=== PATIENT | female | born 1950 | race Caucasian/White ===

== ENCOUNTER 2017-06-09 12:19 | Inpatient (IN) | payer MEDICAID, OTHER ==
[~2017-06-09] VITALS: Ht 152.4 cm; Wt 82.1 kg
[2017-06-09] VITALS (26 sets, daily range): BP systolic 129–180; BP diastolic 55–109
[~2017-06-09 12:19] MED LIST: ENOXAPARIN 80MG/0.8ML SYR SUBCUT SCH
[2017-06-09] MEDS ORDERED: WARF1TAB46 PO (12:27)
[2017-06-09] MEDS ORDERED: ASPI-1159 PO (12:27)
[2017-06-09] MEDS ORDERED: FUROSEMIDE 40MG/4ML VIAL IV STA (13:55)
[2017-06-09] MEDS ORDERED: NITROGLYCERIN OINT 1GM/INCH UDPKT TD STA (13:55)
[2017-06-09] MEDS ORDERED: ASPIRIN 81MG TABLET PO STA (13:55)
[2017-06-09] MEDS ORDERED: VANCOMYCIN 1 G PREMIX 200 ML IV SCH (14:00)
[2017-06-09] MEDS ORDERED: CEFTRIAXONE 1 G PREMIX 50 ML IV ONE (14:00)
[2017-06-09 14:21] LABS: BG CARBOXYHEMOGLOBIN 0.8 % (0.5-1.5); BG DEOXYHEMOGLOBIN 4.7 % (0.0-5.0); BG FRACTION INSPIRED OXYGEN 21; BG HCO3 ACT 28.7 mmol/L (22.0-26.0); BG METHEMOGLOBIN 0.2 % (0.0-1.5); BG OXYGEN SATURATION 95.3 % (92.0-98.5); BG OXYHEMOGLOBIN 94.3 % (94.0-97.0); BG PCO2 44.1 mmHg (35.0-45.0); BG PH 7.432 (7.350-7.450); BG SAMPLE SITE RIGHT RADIAL; BG TOTAL HEMOGLOBIN 10.3 g/dL (12.0-18.0); BG VENT MODE ROOM AIR
[2017-06-09 14:25] LABS: BASOPHILS % 0.3 % (0.0-2.0); EOSINOPHILS % 0.5 % (0.0-5.0); HEMATOCRIT. 29.3 % (36.0-48.0); HEMOGLOBIN. 8.9 g/dL (12.0-16.0); MEAN CORPUSCULAR HEMOGLOBIN 21.4 pg (28.0-32.0); MEAN CORPUSCULAR VOLUME 70.3 fL (81.0-99.0); MEAN PLATELET VOLUME 8.7 fl (7.4-10.4); MONOCYTES % 7.1 % (2.0-8.0); NEUTROPHILS % 84.1 % (40.0-76.0); PLATELET 275 x1000/uL (130-400); RED BLOOD CELL COUNT 4.17 mill/uL (4.2-5.4); RED CELL DISTRIBUTION WIDTH 19.5 % (11.6-14.6)
[2017-06-09 14:31] LABS: CHLORIDE 104 mEq/L (98-107)
[2017-06-09 14:33] LABS: CARBON DIOXIDE 30 mEq/L (21-32)
[2017-06-09 14:43] LABS: INR 1.4; PARTIAL THROMBOPLASTIN TIME 27.8 sec (23.4-31.0); PROTHROMBIN TIME 14.2 sec (9.4-11.6)
[2017-06-09 15:14] LABS: CLARITY URINE CLEAR (CLEAR); COLOR URINE YELLOW (YELLOW); GLUCOSE URINE NEGATIVE (NEGATIVE); KETONES URINE NEGATIVE (NEGATIVE); LEUKOCYTE ESTERASE URINE NEGATIVE (NEGATIVE); NITRITE URINE NEGATIVE (NEGATIVE); OCCULT BLOOD URINE NEGATIVE (NEGATIVE); PH URINE 5.5 (4.5-8.0); PROTEIN URINE 1+ (NEGATIVE)
[2017-06-09] MEDS ORDERED: ENOXAPARIN 80MG/0.8ML SYR SUBCUT ONE (15:45)
[2017-06-09] MEDS ORDERED: ASPIRIN 325MG EC TABLET PO ONE (16:30)
[2017-06-09] MEDS ORDERED: ONDANSETRON HCL 4MG/2ML VIAL IV PRN (16:45)
[2017-06-09] MEDS ORDERED: NITROGLYCERIN 0.4MG TABLET SL SL NR (16:45)
[2017-06-09] MEDS ORDERED: CLONIDINE 0.1MG TABLET PO PRN (16:45)
[2017-06-09] MEDS ORDERED: MORPHINE SULFATE 4 MG/ML CPJ (NOT FOR IM USE) IV PRN (16:45)
[2017-06-09] MEDS ORDERED: AMOX125S8 PO (18:58)
[2017-06-09] MEDS ORDERED: GABA300C PO (18:58)
[2017-06-09] MEDS ORDERED: METO25TA6 PO (18:58)
[2017-06-09] MEDS ORDERED: FURO-151 PO (18:58)
[2017-06-09] MEDS ORDERED: ATOR80TA PO (18:58)
[2017-06-09] MEDS ORDERED: LEVE1000 PO (18:58)
[2017-06-09] MEDS ORDERED: LISI40TA4 PO (18:58)
[2017-06-09] MEDS: ATORVASTATIN CALCIUM 40MG TABLET PO SCH (20:31)
[2017-06-09] MEDS: LISINOPRIL 10MG TABLET PO SCH (20:31)
[2017-06-09] MEDS: POTASSIUM CHLORIDE 20MEQ TABLET SR PO SCH (20:32)
[2017-06-09] MEDS: CARVEDILOL 3.125 MG TABLET PO SCH (20:32)
[2017-06-09 23:33] LABS: CREATINE KINASE MB FRACTION 3.8 ng/mL (0.5-3.6)
[2017-06-10] VITALS (87 sets, daily range): BP systolic 123–170; BP diastolic 60–106
[2017-06-10] MEDS ORDERED: ENOXAPARIN 80MG/0.8ML SYR SUBCUT SCH (03:00)
[2017-06-10 05:49] LABS: BASOPHILS % 0.7 % (0.0-2.0); EOSINOPHILS % 3.9 % (0.0-5.0); HEMATOCRIT. 27.2 % (36.0-48.0); HEMOGLOBIN. 8.4 g/dL (12.0-16.0); LYMPHOCYTES % 12.4 % (20.0-50.0); MEAN CORPUSCULAR HEMOGLOBIN 21.9 pg (28.0-32.0); MEAN CORPUSCULAR VOLUME 71.3 fL (81.0-99.0); MEAN PLATELET VOLUME 9.1 fl (7.4-10.4); MONOCYTES % 7.9 % (2.0-8.0); NEUTROPHILS % 75.1 % (40.0-76.0); PLATELET 237 x1000/uL (130-400); RED BLOOD CELL COUNT 3.82 mill/uL (4.2-5.4); RED CELL DISTRIBUTION WIDTH 19.2 % (11.6-14.6)
[2017-06-10 06:35] LABS: CARBON DIOXIDE 31 mEq/L (21-32); CHLORIDE 106 mEq/L (98-107); HDL CHOLESTEROL 34 mg/dL (40-59); LDL CHOLESTEROL 45 mg/dL (5-100); T4 FREE 1.42 ng/dL (0.76-1.46)
[2017-06-10 08:20] LABS: INR 1.7; PROTHROMBIN TIME 17.3 sec (9.4-11.6)
[2017-06-10] MEDS: POTASSIUM CHLORIDE 20MEQ TABLET SR PO SCH (09:21)
[2017-06-10] MEDS: FUROSEMIDE 40MG/4ML VIAL IV SCH (09:22)
[2017-06-10] MEDS: CARVEDILOL 3.125 MG TABLET PO SCH ×2 (09:22→20:28)
[2017-06-10] MEDS: LISINOPRIL 10MG TABLET PO SCH ×2 (09:22→20:28)
[2017-06-10] MEDS: ASPIRIN 81MG EC TABLET PO SCH (09:22)
[2017-06-10] MEDS ORDERED: POTASSIUM CHLORIDE 20MEQ/PACKET PO NR (10:00)
[2017-06-10] MEDS ORDERED: MAGNESIUM 1 G PREMIX 100 ML IV SCH (11:00)
[2017-06-10] MEDS: PANTOPRAZOLE SODIUM 40 MG/VIAL IV SCH (11:21)
[2017-06-10] MEDS ORDERED: MAGNESIUM 2 G PREMIX 50 ML IV SCH (13:00)
[2017-06-10 13:02] LABS: FOLIC ACID (FOLATE) SERUM 6.7 ng/mL (>5.38)
[2017-06-10] MEDS: ENOXAPARIN 100MG/ML SYR SUBCUT SCH (15:36)
[2017-06-10] MEDS: ATORVASTATIN CALCIUM 40MG TABLET PO SCH (20:28)
[2017-06-11] VITALS (42 sets, daily range): BP systolic 124–168; BP diastolic 53–109
[2017-06-11] MEDS: ENOXAPARIN 100MG/ML SYR SUBCUT SCH (03:36)
[2017-06-11 06:08] LABS: BASOPHILS % 0.5 % (0.0-2.0); EOSINOPHILS % 2.7 % (0.0-5.0); HEMATOCRIT. 27.2 % (36.0-48.0); HEMOGLOBIN. 8.4 g/dL (12.0-16.0); LYMPHOCYTES % 14.8 % (20.0-50.0); MEAN CORPUSCULAR HEMOGLOBIN 21.8 pg (28.0-32.0); MEAN CORPUSCULAR VOLUME 70.9 fL (81.0-99.0); MEAN PLATELET VOLUME 9.5 fl (7.4-10.4); MONOCYTES % 9.2 % (2.0-8.0); NEUTROPHILS % 72.8 % (40.0-76.0); PLATELET 264 x1000/uL (130-400); RED BLOOD CELL COUNT 3.84 mill/uL (4.2-5.4); RED CELL DISTRIBUTION WIDTH 19.5 % (11.6-14.6)
[2017-06-11 07:01] LABS: CARBON DIOXIDE 29 mEq/L (21-32); CHLORIDE 106 mEq/L (98-107)
[2017-06-11] MEDS: CARVEDILOL 3.125 MG TABLET PO SCH ×2 (08:43→20:03)
[2017-06-11] MEDS: ASPIRIN 81MG EC TABLET PO SCH (08:43)
[2017-06-11] MEDS: LISINOPRIL 10MG TABLET PO SCH ×2 (08:44→20:03)
[2017-06-11] MEDS: FUROSEMIDE 40MG/4ML VIAL IV SCH (08:44)
[2017-06-11] MEDS: PANTOPRAZOLE SODIUM 40 MG/VIAL IV SCH (08:44)
[2017-06-11] MEDS: POTASSIUM CHLORIDE 20MEQ TABLET SR PO SCH (08:45)
[2017-06-11 12:35] LABS: INR 1.6; PROTHROMBIN TIME 16.1 sec (9.4-11.6)
[2017-06-11] MEDS: SILVER SULFADIAZINE 1% CREAM 50GM TOP SCH (16:30)
[2017-06-11] MEDS: RIVAROXABAN 20 MG TABLET PO SCH (18:58)
[2017-06-11] MEDS: ATORVASTATIN CALCIUM 40MG TABLET PO SCH (20:02)
[2017-06-11] MEDS: MORPHINE SULFATE 4 MG/ML CPJ (NOT FOR IM USE) IV PRN (20:05)
[2017-06-12] VITALS (12 sets, daily range): BP systolic 114–165; BP diastolic 61–110
[2017-06-12] MEDS: ASPIRIN 81MG EC TABLET PO SCH (09:00)
[2017-06-12] MEDS: PANTOPRAZOLE SODIUM 40 MG/VIAL IV SCH (09:28)
[2017-06-12] MEDS: FUROSEMIDE 40MG/4ML VIAL IV SCH (09:28)
[2017-06-12] MEDS: POTASSIUM CHLORIDE 20MEQ TABLET SR PO SCH (09:29)
[2017-06-12] MEDS: CARVEDILOL 3.125 MG TABLET PO SCH ×2 (09:29→20:38)
[2017-06-12] MEDS: LISINOPRIL 10MG TABLET PO SCH ×2 (09:29→20:38)
[2017-06-12] MEDS: SILVER SULFADIAZINE 1% CREAM 50GM TOP SCH (09:31)
[2017-06-12 11:50] LABS: HEMATOCRIT 28.9 % (36.0-48.0); HEMOGLOBIN 8.7 g/dL (12.0-16.0); MEAN CORPUSCULAR HEMOGLOBIN 21.3 pg (28.0-32.0); PLATELET 270 x1000/uL (130-400); RED BLOOD CELL COUNT 4.06 mill/uL (4.2-5.4); RED CELL DISTRIBUTION WIDTH 19.9 % (11.6-14.6)
[2017-06-12 12:04] LABS: CARBON DIOXIDE 28 mEq/L (21-32); CHLORIDE 107 mEq/L (98-107)
[2017-06-12] MEDS ORDERED: IPRATROPIUM/ALBUTEROL 0.5-3(2.5)MG/3ML NEB HHN PRN (12:15)
[2017-06-12] MEDS: RIVAROXABAN 20 MG TABLET PO SCH (17:02)
[2017-06-12] MEDS: ATORVASTATIN CALCIUM 40MG TABLET PO SCH (20:36)
[2017-06-13] VITALS (11 sets, daily range): BP systolic 122–181; BP diastolic 52–99
[2017-06-13] MEDS: FUROSEMIDE 40MG/4ML VIAL IV SCH (09:44)
[2017-06-13] MEDS: POTASSIUM CHLORIDE 20MEQ TABLET SR PO SCH (09:44)
[2017-06-13] MEDS: ASPIRIN 81MG EC TABLET PO SCH (09:44)
[2017-06-13] MEDS: LISINOPRIL 10MG TABLET PO SCH ×2 (09:44→20:44)
[2017-06-13] MEDS: FAMOTIDINE 20MG TABLET PO SCH ×2 (09:44→20:42)
[2017-06-13] MEDS: CARVEDILOL 3.125 MG TABLET PO SCH ×2 (09:45→20:44)
[2017-06-13] MEDS: SILVER SULFADIAZINE 1% CREAM 50GM TOP SCH (09:50)
[2017-06-13] MEDS: RIVAROXABAN 20 MG TABLET PO SCH (17:18)
[2017-06-13] MEDS: HYDRALAZINE 20MG/ML VIAL IV PRN (19:49)
[2017-06-13] MEDS: ATORVASTATIN CALCIUM 40MG TABLET PO SCH (20:42)
[2017-06-13] MEDS: MORPHINE SULFATE 4 MG/ML CPJ (NOT FOR IM USE) IV PRN (21:27)
[2017-06-14] VITALS (13 sets, daily range): BP systolic 142–168; BP diastolic 46–98
[2017-06-14 06:46] LABS: BASOPHILS % 0.7 % (0.0-2.0); EOSINOPHILS % 2.5 % (0.0-5.0); HEMATOCRIT. 30.5 % (36.0-48.0); HEMOGLOBIN. 9.3 g/dL (12.0-16.0); LYMPHOCYTES % 19.5 % (20.0-50.0); MEAN CORPUSCULAR HEMOGLOBIN 21.4 pg (28.0-32.0); MEAN CORPUSCULAR VOLUME 70.5 fL (81.0-99.0); MEAN PLATELET VOLUME 9.3 fl (7.4-10.4); MONOCYTES % 9.6 % (2.0-8.0); NEUTROPHILS % 67.7 % (40.0-76.0); PLATELET 300 x1000/uL (130-400); RED BLOOD CELL COUNT 4.32 mill/uL (4.2-5.4); RED CELL DISTRIBUTION WIDTH 19.9 % (11.6-14.6)
[2017-06-14 07:16] LABS: CARBON DIOXIDE 26 mEq/L (21-32); CHLORIDE 107 mEq/L (98-107)
[2017-06-14] MEDS: POTASSIUM CHLORIDE 20MEQ TABLET SR PO SCH (08:47)
[2017-06-14] MEDS: CARVEDILOL 3.125 MG TABLET PO SCH ×2 (08:47→20:48)
[2017-06-14] MEDS: LISINOPRIL 10MG TABLET PO SCH ×2 (08:47→20:49)
[2017-06-14] MEDS: ASPIRIN 81MG EC TABLET PO SCH (08:47)
[2017-06-14] MEDS: FAMOTIDINE 20MG TABLET PO SCH ×2 (08:47→20:48)
[2017-06-14] MEDS: FUROSEMIDE 40MG/4ML VIAL IV SCH (08:47)
[2017-06-14] MEDS: SILVER SULFADIAZINE 1% CREAM 50GM TOP SCH (08:48)
[2017-06-14] MEDS: TRAMADOL 50MG TABLET PO PRN ×2 (11:29→20:49)
[2017-06-14] MEDS: RIVAROXABAN 20 MG TABLET PO SCH (16:12)
[2017-06-14] MEDS: ZINC SULFATE 220 MG ( 50 ) CAPSULE PO SCH (16:12)
[2017-06-14] MEDS: HYDRALAZINE 20MG/ML VIAL IV PRN (17:16)
[2017-06-14] MEDS: ASCORBIC ACID 250 MG TABLET PO SCH (20:48)
[2017-06-14] MEDS: ATORVASTATIN CALCIUM 40MG TABLET PO SCH (20:48)
[2017-06-15] VITALS (13 sets, daily range): BP systolic 132–159; BP diastolic 56–102
[2017-06-15] MEDS: SILVER SULFADIAZINE 1% CREAM 50GM TOP SCH (06:50)
[2017-06-15] MEDS ORDERED: MULTIVITAMINS,THER W-MINERALS TABLET PO SCH (09:00)
[2017-06-15] MEDS: POTASSIUM CHLORIDE 20MEQ TABLET SR PO SCH (09:11)
[2017-06-15] MEDS: CARVEDILOL 3.125 MG TABLET PO SCH ×2 (09:11→20:55)
[2017-06-15] MEDS: LISINOPRIL 10MG TABLET PO SCH ×2 (09:11→20:55)
[2017-06-15] MEDS: ZINC SULFATE 220 MG ( 50 ) CAPSULE PO SCH (09:11)
[2017-06-15] MEDS: ASPIRIN 81MG EC TABLET PO SCH (09:11)
[2017-06-15] MEDS: FAMOTIDINE 20MG TABLET PO SCH ×2 (09:11→20:55)
[2017-06-15] MEDS: FUROSEMIDE 40MG/4ML VIAL IV SCH (09:11)
[2017-06-15] MEDS: ASCORBIC ACID 250 MG TABLET PO SCH ×2 (09:11→20:55)
[2017-06-15 09:35] LABS: BASOPHILS % 0.5 % (0.0-2.0); EOSINOPHILS % 3.2 % (0.0-5.0); HEMATOCRIT. 31.9 % (36.0-48.0); HEMOGLOBIN. 9.8 g/dL (12.0-16.0); LYMPHOCYTES % 16.2 % (20.0-50.0); MEAN CORPUSCULAR HEMOGLOBIN 21.5 pg (28.0-32.0); MEAN CORPUSCULAR VOLUME 70.4 fL (81.0-99.0); MEAN PLATELET VOLUME 9.1 fl (7.4-10.4); NEUTROPHILS % 73.1 % (40.0-76.0); PLATELET 307 x1000/uL (130-400); RED BLOOD CELL COUNT 4.53 mill/uL (4.2-5.4); RED CELL DISTRIBUTION WIDTH 19.7 % (11.6-14.6)
[2017-06-15 09:51] LABS: CARBON DIOXIDE 27 mEq/L (21-32); CHLORIDE 105 mEq/L (98-107)
[2017-06-15] MEDS: RIVAROXABAN 20 MG TABLET PO SCH (17:35)
[2017-06-15] MEDS: ATORVASTATIN CALCIUM 40MG TABLET PO SCH (20:55)
[2017-06-16 00:39] VITALS: BP 150/65
[2017-07-05] MEDS ORDERED: WARF5TAB76 PO (13:41)
[2017-07-06] MEDS ORDERED: WARF5TAB76 PO (20:23)
== END 2017-06-16 00:40 | DRG 190 ==
LOC: EDBD 12:19 → ER 12:19 → EDBEDREQ 16:04 → OBSVTOIN 16:20 → CVICU 16:20 → EDBEDREQ 16:24 → EDBEDREQTM 16:24 → EDBEDREQSVC 16:24 → EDBEDREQ 16:29 → ENRESERV 16:30 → 5EST 06-11 18:37
PROVIDERS: ADMIT Hospitalist; ATTEND Hospitalist
DX: I21.4 Non-ST elevation (NSTEMI) myocardial infarction (principal); J96.00 Acute respiratory failure, unspecified whether with hypoxia or hypercapnia; E43 Unspecified severe protein-calorie malnutrition; I50.21 Acute systolic (congestive) heart failure; D68.59 Other primary thrombophilia; I42.9 Cardiomyopathy, unspecified; I27.2 Other secondary pulmonary hypertension; F03.90 Unspecified dementia, unspecified severity, without behavioral disturbance, psychotic disturbance, mood disturbance, and anxiety; E83.42 Hypomagnesemia; D64.9 Anemia, unspecified; E78.00 Pure hypercholesterolemia, unspecified; E78.5 Hyperlipidemia, unspecified; E87.5 Hyperkalemia; E87.6 Hypokalemia; G40.909 Epilepsy, unspecified, not intractable, without status epilepticus; I07.1 Rheumatic tricuspid insufficiency; I11.0 Hypertensive heart disease with heart failure; I48.2 Chronic atrial fibrillation; I69.351 Hemiplegia and hemiparesis following cerebral infarction affecting right dominant side; Z79.01 Long term (current) use of anticoagulants; Z79.82 Long term (current) use of aspirin; Z85.3 Personal history of malignant neoplasm of breast; Z79.899 Other long term (current) drug therapy; Z68.35 Body mass index [BMI] 35.0-35.9, adult
CPT/HCPCS: 36415; 36600; 51702; 70450; 70551; 71010; 78580; 80048; 80053; 80061; 81001; 82375; 82550; 82553; 82607; 82746; 82805; 83036; 83605; 83735; 83880; 84439; 84443; 84481; 84484; 85025; 85027; 85610; 85730; 87040; 87086; 92610; 93005; 93306; 93880; 93970; 96365; 96367; 96372; 96375; 97162; 99291; C9113; J0360; J0696; J1650; J1940; J2270; J3370; J3475; J7040; J7050; A4315

== ENCOUNTER 2017-07-01 13:36 | Inpatient (IN) | payer MEDICAID, OTHER ==
[~2017-07-01] VITALS: Ht 149.9 cm; Wt 78.5 kg
[~2017-07-01 13:36] MED LIST changes: +ASPI-1159 PO; -ENOXAPARIN 80MG/0.8ML SYR SUBCUT SCH; +FURO-151 PO; +GABA300C PO; +IOHEXOL-350 100 ML BOTTLE ONE; +LEVE1000 PO; +SODIUM CHLORIDE 0.9% 10ML VIAL ONE
[2017-07-01] MEDS ORDERED: SODIUM CHLORIDE 0.9% 1,000 ML IV ONE (14:03)
[2017-07-01 14:38] LABS: BG BASE EXCESS -2.5 mmol/L (-2.0-2.0); BG DEOXYHEMOGLOBIN 6.1 % (0.0-5.0); BG FRACTION INSPIRED OXYGEN 21; BG HCO3 ACT 22.5 mmol/L (22.0-26.0); BG METHEMOGLOBIN 0.3 % (0.0-1.5); BG OXYGEN SATURATION 93.8 % (92.0-98.5); BG OXYHEMOGLOBIN 92.6 % (94.0-97.0); BG PCO2 39.4 mmHg (35.0-45.0); BG PH 7.374 (7.350-7.450); BG SAMPLE SITE RIGHT BRACHIAL; BG TOTAL HEMOGLOBIN 12.7 g/dL (12.0-18.0); BG VENT MODE ROOM AIR
[2017-07-01 14:39] LABS: BASOPHILS % 0.3 % (0.0-2.0); EOSINOPHILS % 2.7 % (0.0-5.0); HEMATOCRIT. 37.7 % (36.0-48.0); HEMOGLOBIN. 11.5 g/dL (12.0-16.0); LYMPHOCYTES % 12.7 % (20.0-50.0); MEAN CORPUSCULAR HEMOGLOBIN 21.9 pg (28.0-32.0); MEAN CORPUSCULAR VOLUME 71.8 fL (81.0-99.0); MEAN PLATELET VOLUME 9.9 fl (7.4-10.4); MONOCYTES % 8.1 % (2.0-8.0); NEUTROPHILS % 76.2 % (40.0-76.0); PLATELET 244 x1000/uL (130-400); RED BLOOD CELL COUNT 5.24 mill/uL (4.2-5.4); RED CELL DISTRIBUTION WIDTH 21.8 % (11.6-14.6)
[2017-07-01 14:45] LABS: INR 1.2
[2017-07-01 14:52] LABS: AMMONIA 20 uMol/L (<32)
[2017-07-01 15:01] LABS: CARBON DIOXIDE 26 mEq/L (21-32); CHLORIDE 107 mEq/L (98-107)
[2017-07-01 15:02] LABS: TROPONIN I 0.71 ng/mL (0.00-0.04)
[2017-07-01] MEDS ORDERED: HEPARIN 5000 UNITS/ML VIAL IV ONE (19:30)
[2017-07-01] MEDS ORDERED: ASPIRIN 325MG EC TABLET PO ONE (19:30)
[2017-07-01] MEDS ORDERED: HEPARIN 25,000 UNITS PREMIX 500 ML IV SCH ×3 (19:30→22:00)
[2017-07-01] MEDS ORDERED: HEPARIN BOLUS PRN aPTT <36 IV (22:00)
[2017-07-01] MEDS ORDERED: HEPARIN BOLUS PRN aPTT 37-44 IV (22:00)
[2017-07-01] MEDS ORDERED: NA PHOS,M-B/NA PHOS,DI-BA ENEMA 118ML PR PRN (22:45)
[2017-07-01] MEDS ORDERED: DOCUSATE SODIUM 100MG CAPSULE PO PRN (22:45)
[2017-07-01] MEDS ORDERED: ACETAMINOPHEN 650MG/20.3ML UDC GT PRN (22:45)
[2017-07-01] MEDS ORDERED: VANCOMYCIN 1 G PREMIX 200 ML IV SCH (22:45)
[2017-07-01] MEDS ORDERED: ACETAMINOPHEN 650MG SUPP PR PRN (22:45)
[2017-07-01] MEDS ORDERED: HEPARIN 25,000 UNITS PREMIX 500 ML IV PRN (22:45)
[2017-07-01] MEDS ORDERED: CLONIDINE 0.1MG TABLET PO PRN (22:45)
[2017-07-01] MEDS ORDERED: DIPHENHYDRAMINE 50MG/ML VIAL IV PRN (22:45)
[2017-07-01] MEDS ORDERED: GUAIFENESIN 200MG/10ML SUGAR FREE UDC PO PRN (22:45)
[2017-07-01] MEDS ORDERED: ONDANSETRON HCL 4MG/2ML VIAL IV PRN (22:45)
[2017-07-01] MEDS ORDERED: IPRATROPIUM/ALBUTEROL 0.5-3(2.5)MG/3ML NEB INH PRN (22:45)
[2017-07-01] MEDS ORDERED: MAGNESIUM/ALUMINUM HYDROXIDE/SIMETHICONE 30ML UDC PO PRN (22:45)
[2017-07-01 23:20] VITALS: BP 156/79
[2017-07-01 23:26] VITALS: BP 186/100
[2017-07-01 23:30] VITALS: BP 180/104
[2017-07-01 23:45] VITALS: BP 157/62
[2017-07-02] VITALS (115 sets, daily range): BP systolic 90–189; BP diastolic 41–125
[2017-07-02] MEDS ORDERED: VANCOMYCIN 1 G PREMIX 200 ML IV SCH (02:00)
[2017-07-02] MEDS: SODIUM CHLORIDE 0.9% INJ 3ML FLUSH IVF SCH ×3 (06:05→22:35)
[2017-07-02 06:16] LABS: BASOPHILS % 0.5 % (0.0-2.0); EOSINOPHILS % 3.1 % (0.0-5.0); HEMOGLOBIN. 10.7 g/dL (12.0-16.0); MEAN CORPUSCULAR HEMOGLOBIN 21.8 pg (28.0-32.0); MEAN CORPUSCULAR VOLUME 71.3 fL (81.0-99.0); MEAN PLATELET VOLUME 10.7 fl (7.4-10.4); MONOCYTES % 8.8 % (2.0-8.0); NEUTROPHILS % 62.6 % (40.0-76.0); PLATELET 219 x1000/uL (130-400); RED BLOOD CELL COUNT 4.91 mill/uL (4.2-5.4); RED CELL DISTRIBUTION WIDTH 22.3 % (11.6-14.6)
[2017-07-02 06:43] LABS: CARBON DIOXIDE 27 mEq/L (21-32); CHLORIDE 104 mEq/L (98-107); CREATINE KINASE 37 IU/L (26-192); HDL CHOLESTEROL 51 mg/dL (40-59); LDL CHOLESTEROL 56 mg/dL (5-100)
[2017-07-02 07:20] LABS: TROPONIN I 0.66 ng/mL (0.00-0.04)
[2017-07-02 08:00] LABS: PLATELET ESTIMATE NORMAL
[2017-07-02] MEDS: HYDROCODONE/ACETAMINOPHEN 5/325MG TABLET PO PRN (08:25)
[2017-07-02] MEDS ORDERED: POTASSIUM CHLORIDE INJ 40 MEQ in DEXT 5% WATER 250 ML IV NR (11:30)
[2017-07-02] MEDS ORDERED: FUROSEMIDE 40MG TABLET PO PRN (11:45)
[2017-07-02] MEDS: GABAPENTIN 300MG CAPSULE PO SCH ×2 (12:35→16:52)
[2017-07-02] MEDS ORDERED: SODIUM CHLORIDE 0.9% 10ML VIAL ONE (14:05)
[2017-07-02] MEDS ORDERED: IOHEXOL-350 100 ML BOTTLE ONE (14:05)
[2017-07-02] MEDS ORDERED: POTASSIUM CHLORIDE 20MEQ/PACKET PO NR (14:45)
[2017-07-02 16:20] LABS: D-DIMER 0.83 mg/L FEU (<0.50)
[2017-07-02 16:37] LABS: TROPONIN I 0.66 ng/mL (0.00-0.04)
[2017-07-02 18:06] LABS: PARTIAL THROMBOPLASTIN TIME 123.2 sec (23.4-31.0)
[2017-07-02] MEDS: VANCOMYCIN 750 MG PREMIX 150 ML IV SCH (22:01)
[2017-07-03] VITALS (47 sets, daily range): BP systolic 90–167; BP diastolic 41–107
[2017-07-03] MEDS: SODIUM CHLORIDE 0.9% INJ 3ML FLUSH IVF SCH ×3 (05:09→22:00)
[2017-07-03] MEDS: GABAPENTIN 300MG CAPSULE PO SCH ×3 (07:47→17:00)
[2017-07-03] MEDS ORDERED: ALTEPLASE 2MG/VIAL ITC ONE (11:15)
[2017-07-03] MEDS ORDERED: ALTEPLASE 8 MG in SODIUM CHLORIDE 0.9% 100 ML IV NR (11:16)
[2017-07-03] MEDS ORDERED: LIDOCAINE HCL 1% 20ML VIAL (Pyxis) INJ ONE (11:21)
[2017-07-03] MEDS ORDERED: IODIXANOL 320MG/ML 100 ML BOTTLE IV ONE (11:21)
[2017-07-03] MEDS ORDERED: MIDAZOLAM HCL 2 MG/2 ML VIAL ONE (12:00)
[2017-07-03] MEDS ORDERED: FENTANYL CITRATE/PF 50MCG/ML 2ML VIAL ONE (12:00)
[2017-07-03] MEDS ORDERED: IOVERSOL 240MG/ML 100ML BOTTLE IV ONE (12:36)
[2017-07-03] MEDS ORDERED: HEPARIN SODIUM 1,000 UNIT/1ML VIAL IV ONE (13:31)
[2017-07-03] MEDS: VANCOMYCIN 750 MG PREMIX 150 ML IV SCH (14:06)
[2017-07-03 17:54] LABS: BASOPHILS % 0.3 % (0.0-2.0); EOSINOPHILS % 4.7 % (0.0-5.0); HEMATOCRIT. 33.3 % (36.0-48.0); HEMOGLOBIN. 10.2 g/dL (12.0-16.0); LYMPHOCYTES % 17.3 % (20.0-50.0); MEAN CORPUSCULAR HEMOGLOBIN 21.8 pg (28.0-32.0); MEAN CORPUSCULAR VOLUME 71.5 fL (81.0-99.0); MEAN PLATELET VOLUME 9.3 fl (7.4-10.4); MONOCYTES % 7.8 % (2.0-8.0); NEUTROPHILS % 69.9 % (40.0-76.0); PLATELET 186 x1000/uL (130-400); RED BLOOD CELL COUNT 4.66 mill/uL (4.2-5.4)
[2017-07-03 17:58] LABS: CARBON DIOXIDE 26 mEq/L (21-32); CHLORIDE 108 mEq/L (98-107)
[2017-07-03] MEDS ORDERED: RIVAROXABAN 20 MG TABLET PO SCH (20:00)
[2017-07-03] MEDS: HYDROCODONE/ACETAMINOPHEN 5/325MG TABLET PO PRN (20:54)
[2017-07-04] VITALS (55 sets, daily range): BP systolic 106–188; BP diastolic 39–106
[2017-07-04 05:39] LABS: BASOPHILS % 0.4 % (0.0-2.0); EOSINOPHILS % 4.6 % (0.0-5.0); HEMOGLOBIN. 10.4 g/dL (12.0-16.0); LYMPHOCYTES % 20.5 % (20.0-50.0); MEAN CORPUSCULAR VOLUME 72.2 fL (81.0-99.0); MEAN PLATELET VOLUME 10.2 fl (7.4-10.4); MONOCYTES % 10.4 % (2.0-8.0); NEUTROPHILS % 64.1 % (40.0-76.0); PLATELET 180 x1000/uL (130-400); RED BLOOD CELL COUNT 4.71 mill/uL (4.2-5.4); RED CELL DISTRIBUTION WIDTH 22.8 % (11.6-14.6)
[2017-07-04] MEDS: SODIUM CHLORIDE 0.9% INJ 3ML FLUSH IVF SCH ×3 (05:44→22:34)
[2017-07-04 06:01] LABS: CARBON DIOXIDE 26 mEq/L (21-32); CHLORIDE 107 mEq/L (98-107)
[2017-07-04] MEDS: GABAPENTIN 300MG CAPSULE PO SCH ×3 (09:26→17:30)
[2017-07-04] MEDS: VANCOMYCIN 750 MG PREMIX 150 ML IV SCH (09:27)
[2017-07-04] MEDS: HYDROCODONE/ACETAMINOPHEN 5/325MG TABLET PO PRN ×2 (09:43→20:55)
[2017-07-04] MEDS: WARFARIN SODIUM 5MG TABLET PO SCH (17:35)
[2017-07-05] VITALS (31 sets, daily range): BP systolic 102–174; BP diastolic 46–102
[2017-07-05] MEDS: VANCOMYCIN 750 MG PREMIX 150 ML IV SCH ×2 (01:14→21:15)
[2017-07-05] MEDS: SODIUM CHLORIDE 0.9% INJ 3ML FLUSH IVF SCH ×3 (05:03→21:15)
[2017-07-05] MEDS: HYDROCODONE/ACETAMINOPHEN 5/325MG TABLET PO PRN ×2 (05:03→18:22)
[2017-07-05 06:54] LABS: INR 1.1
[2017-07-05] MEDS: GABAPENTIN 300MG CAPSULE PO SCH ×3 (09:34→18:18)
[2017-07-05 10:56] LABS: HEMATOCRIT. 32.1 % (36.0-48.0); HEMOGLOBIN. 9.8 g/dL (12.0-16.0); MEAN CORPUSCULAR HEMOGLOBIN 22.1 pg (28.0-32.0); MEAN CORPUSCULAR VOLUME 72.3 fL (81.0-99.0); MEAN PLATELET VOLUME 11.2 fl (7.4-10.4); PLATELET 165 x1000/uL (130-400); RED BLOOD CELL COUNT 4.44 mill/uL (4.2-5.4); RED CELL DISTRIBUTION WIDTH 23.3 % (11.6-14.6)
[2017-07-05 11:07] LABS: CARBON DIOXIDE 24 mEq/L (21-32); CHLORIDE 106 mEq/L (98-107)
[2017-07-05 12:21] LABS: PLATELET ESTIMATE NORMAL
[2017-07-05] MEDS ORDERED: WARF5TAB76 PO (13:41)
[2017-07-05] MEDS ORDERED: REGADENOSON 0.4 MG/5 ML IV NR (14:30)
[2017-07-05] MEDS ORDERED: WARFARIN SODIUM 5MG TABLET PO NR (18:00)
[2017-07-05] MEDS: WARFARIN SODIUM 5MG TABLET PO SCH (18:17)
[2017-07-06] VITALS: BP 131/57
[2017-07-06 04:00] VITALS: BP 127/67
[2017-07-06 06:37] LABS: INR 1.2; PROTHROMBIN TIME 12.2 sec (9.4-11.6)
[2017-07-06 08:00] VITALS: BP 177/81
[2017-07-06] MEDS: GABAPENTIN 300MG CAPSULE PO SCH ×3 (08:43→17:34)
[2017-07-06] MEDS ORDERED: WARFARIN SODIUM 5MG TABLET PO ONE (09:00)
[2017-07-06] MEDS ORDERED: REGADENOSON 0.4 MG/5 ML IV ONE (09:27)
[2017-07-06 12:00] VITALS: BP 121/62
[2017-07-06] MEDS: VANCOMYCIN 1 G PREMIX 200 ML IV SCH (15:00)
[2017-07-06 16:00] VITALS: BP 136/78
[2017-07-06] MEDS: WARFARIN SODIUM 5MG TABLET PO SCH (18:00)
[2017-07-06 20:00] VITALS: BP 96/45
[2017-07-06] MEDS ORDERED: WARF5TAB76 PO (20:23)
[2017-07-06 22:07] LABS: INR 1.4; PROTHROMBIN TIME 14.2 sec (9.4-11.6)
[2017-07-07] VITALS: BP 112/49
[2017-07-07 04:00] VITALS: BP 135/57
[2017-07-07] MEDS: ACETAMINOPHEN 325MG TABLET PO PRN ×2 (05:29→17:42)
[2017-07-07] MEDS: SODIUM CHLORIDE 0.9% INJ 3ML FLUSH IVF SCH ×2 (05:37→15:15)
[2017-07-07 08:00] VITALS: BP 137/62
[2017-07-07] MEDS: VANCOMYCIN 1 G PREMIX 200 ML IV SCH (08:42)
[2017-07-07] MEDS: GABAPENTIN 300MG CAPSULE PO SCH ×3 (08:42→16:24)
[2017-07-07 10:26] LABS: HEMOGLOBIN. 9.8 g/dL (12.0-16.0); MEAN CORPUSCULAR HEMOGLOBIN 22.2 pg (28.0-32.0); MEAN CORPUSCULAR VOLUME 72.3 fL (81.0-99.0); MEAN PLATELET VOLUME 10.5 fl (7.4-10.4); PLATELET 185 x1000/uL (130-400); RED BLOOD CELL COUNT 4.43 mill/uL (4.2-5.4); RED CELL DISTRIBUTION WIDTH 23.8 % (11.6-14.6)
[2017-07-07 10:28] LABS: INR 1.6; PROTHROMBIN TIME 16.7 sec (9.4-11.6)
[2017-07-07 10:53] LABS: CARBON DIOXIDE 27 mEq/L (21-32); CHLORIDE 104 mEq/L (98-107)
[2017-07-07 12:00] VITALS: BP 126/66
[2017-07-07 16:00] VITALS: BP 128/60
[2017-07-07 16:45] LABS: ATYPICAL LYMPHOCYTES 1; PLATELET ESTIMATE NORMAL
[2017-07-07 17:21] VITALS: BP 128/60
== END 2017-07-07 18:15 | disposition home or self-care (01) | DRG 181 ==
LOC: ER 13:36 → MICUNO 20:34 → ENRESERV 21:47 → 6EST 07-05 23:10
PROVIDERS: ADMIT Family Medicine; ATTEND Family Medicine
PROC: 04CM3ZZ Extirpation of Matter from Right Popliteal Artery, Percutaneous Approach (ICD-10-PCS; principal; 2017-07-03)
PROC: 04CP3ZZ Extirpation of Matter from Right Anterior Tibial Artery, Percutaneous Approach (ICD-10-PCS; 2017-07-03)
PROC: 047M3ZZ Dilation of Right Popliteal Artery, Percutaneous Approach (ICD-10-PCS; 2017-07-03)
PROC: 047P3ZZ Dilation of Right Anterior Tibial Artery, Percutaneous Approach (ICD-10-PCS; 2017-07-03)
PROC: B41F1ZZ Fluoroscopy of Right Lower Extremity Arteries using Low Osmolar Contrast (ICD-10-PCS; 2017-07-03)
PROC: 02HV33Z Insertion of Infusion Device into Superior Vena Cava, Percutaneous Approach (ICD-10-PCS; 2017-07-03)
PROC: B548ZZA Ultrasonography of Superior Vena Cava, Guidance (ICD-10-PCS; 2017-07-03)
DX: I74.3 Embolism and thrombosis of arteries of the lower extremities (principal); E43 Unspecified severe protein-calorie malnutrition; G90.8 Other disorders of autonomic nervous system; E11.40 Type 2 diabetes mellitus with diabetic neuropathy, unspecified; E11.51 Type 2 diabetes mellitus with diabetic peripheral angiopathy without gangrene; I48.91 Unspecified atrial fibrillation; E44.1 Mild protein-calorie malnutrition; R55 Syncope and collapse; G40.909 Epilepsy, unspecified, not intractable, without status epilepticus; I10 Essential (primary) hypertension; I51.7 Cardiomegaly; R74.8 Abnormal levels of other serum enzymes; Z86.73 Personal history of transient ischemic attack (TIA), and cerebral infarction without residual deficits; Z79.899 Other long term (current) drug therapy; Z79.82 Long term (current) use of aspirin; Z68.34 Body mass index [BMI] 34.0-34.9, adult
CPT/HCPCS: 36415; 36569; 36600; 37225; 37229; 71010; 71275; 72191; 73706; 75710; 76937; 78452; 80048; 80053; 80061; 80202; 82140; 82375; 82550; 82805; 83605; 83690; 83880; 84443; 84484; 85025; 85347; 85379; 85610; 85730; 93005; 93017; 93306; 96361; 96374; 97116; 97163; 97530; 99285; A4216; A9500; C1725; C1760; C1769; C1885; C1887; C1893; C1894; J1644; J2250; J2785; J2997; J3010; J3370; J3480; J3490; J7030; J7042; J7050; J7060; Q9967

== ENCOUNTER 2018-01-10 00:55 | Inpatient (IN) | payer OTHER, MEDICAID ==
[2018-01-10] VITALS (19 sets, daily range): BP systolic 65–139; BP diastolic 31–79
[~2018-01-10] VITALS: Ht 165.1 cm; Wt 86.6 kg
[~2018-01-10 00:55] MED LIST changes: -IOHEXOL-350 100 ML BOTTLE ONE; -SODIUM CHLORIDE 0.9% 10ML VIAL ONE; +WARF5TAB76 PO
[2018-01-10] MEDS ORDERED: SODIUM CHLORIDE 0.9% 1,000 ML IV ONE (01:08)
[2018-01-10] MEDS ORDERED: ETOMIDATE 2MG/ML 10ML VIAL IV ONE ×2 (01:15→01:21)
[2018-01-10] MEDS ORDERED: SODIUM CHLORIDE 0.9% 1000ML BAG (SEPSIS BOLUS) IV ONE ×2 (01:15→02:30)
[2018-01-10] MEDS ORDERED: SUCCINYLCHOLINE CHLORIDE 200MG/10ML VIAL IV ONE ×2 (01:15→01:21)
[2018-01-10] MEDS ORDERED: PROPOFOL 10MG/ML 100ML 100 ML IV ONE ×2 (01:15→03:36)
[2018-01-10] MEDS ORDERED: NORMAL SALINE 0.9% 10 ML SYR ONE (01:21)
[2018-01-10] MEDS ORDERED: LEVETIRACETAM 500MG PREMIX 100 ML IV ONE (01:30)
[2018-01-10 01:44] LABS: BG BASE EXCESS -3.1 mmol/L (-2.0-2.0); BG CARBOXYHEMOGLOBIN 0.7 % (0.5-1.5); BG DEOXYHEMOGLOBIN 0.2 % (0.0-5.0); BG FRACTION INSPIRED OXYGEN 100; BG HCO3 ACT 21.8 mmol/L (22.0-26.0); BG METHEMOGLOBIN 0.3 % (0.0-1.5); BG OXYGEN SATURATION 99.8 % (92.0-98.5); BG OXYHEMOGLOBIN 98.8 % (94.0-97.0); BG PCO2 38.6 mmHg (35.0-45.0); BG PO2 397.5 mmHg (75.0-100.0); BG SAMPLE SITE LEFT RADIAL; BG TIDAL VOLUME(mL) 500 mL; BG TOTAL HEMOGLOBIN 10.3 g/dL (12.0-18.0); BG VENT MODE VENT - A/C; BG VENT RATE 14 set
[2018-01-10 01:53] LABS: HEMATOCRIT. 30.4 % (36.0-48.0); HEMOGLOBIN. 9.3 g/dL (12.0-16.0); MEAN CORPUSCULAR HEMOGLOBIN 23.2 pg (28.0-32.0); MEAN CORPUSCULAR VOLUME 76.2 fL (81.0-99.0); MEAN PLATELET VOLUME 8.9 fl (7.4-10.4); PLATELET 193 x1000/uL (130-400); RED BLOOD CELL COUNT 3.99 mill/uL (4.2-5.4); RED CELL DISTRIBUTION WIDTH 25.4 % (11.6-14.6)
[2018-01-10 02:01] LABS: CHLORIDE 105 mEq/L (98-107)
[2018-01-10 02:05] LABS: PROTHROMBIN TIME 44.4 sec (9.4-11.6)
[2018-01-10 02:06] LABS: ETHANOL BLOOD < 10 mg/dL
[2018-01-10 02:09] LABS: AMMONIA 50 uMol/L (<32)
[2018-01-10 02:10] LABS: CREATINE KINASE 92 IU/L (26-192)
[2018-01-10 02:23] LABS: INR 4.3
[2018-01-10] MEDS ORDERED: PHYTONADIONE 10MG/ML AMP SUBCUT ONE (02:30)
[2018-01-10] MEDS ORDERED: VANCOMYCIN 1 G PREMIX 200 ML IV ONE (02:30)
[2018-01-10] MEDS ORDERED: PIPERACILLIN/TAZ 3.375G PREMIX 50 ML IV ONE (02:30)
[2018-01-10] MEDS ORDERED: LACTULOSE 20G/30ML UDC PO ONE (02:30)
[2018-01-10 02:48] LABS: NUCLEATED RED BLOOD CELLS 6 /100 WBC; PLATELET ESTIMATE NORMAL
[2018-01-10] MEDS ORDERED: ASPIRIN 300MG SUPP PR ONE (03:15)
[2018-01-10 04:40] LABS: CLARITY URINE CLOUDY (CLEAR); COLOR URINE YELLOW (YELLOW); KETONES URINE NEGATIVE (NEGATIVE); LEUKOCYTE ESTERASE URINE 1+ (NEGATIVE); NITRITE URINE NEGATIVE (NEGATIVE); OCCULT BLOOD URINE 3+ (NEGATIVE); PH URINE 5.5 (4.5-8.0); PROTEIN URINE 2+ (NEGATIVE); SPECIFIC GRAVITY URINE 1.017 (1.005-1.030)
[2018-01-10 04:50] LABS: *AMPHETAMINES SCREEN URINE NEGATIVE (NEGATIVE)
[2018-01-10 04:51] LABS: *BARBITURATES SCREEN URINE NEGATIVE (NEGATIVE); *BENZODIAZEPINES SCREEN URINE NEGATIVE (NEGATIVE); *COCAINE SCREEN URINE NEGATIVE (NEGATIVE); METHADONE URINE SCREEN NEGATIVE (NEGATIVE); PHENCYCLIDINE URINE SCREEN NEGATIVE (NEGATIVE)
[2018-01-10 04:52] LABS: CANNABINOID URINE SCREEN NEGATIVE (NEGATIVE)
[2018-01-10 04:54] LABS: OPIATES URINE SCREEN NEGATIVE (NEGATIVE)
[2018-01-10] MEDS ORDERED: HYDROCODONE/ACETAMINOPHEN 5/325MG TABLET PO PRN (06:00)
[2018-01-10] MEDS ORDERED: ACETAMINOPHEN 325MG TABLET PO PRN (06:00)
[2018-01-10] MEDS: ENOXAPARIN 40MG/0.4ML SYR SUBCUT SCH (06:00)
[2018-01-10] MEDS ORDERED: GUAIFENESIN 200MG/10ML SUGAR FREE UDC PO PRN (06:00)
[2018-01-10] MEDS ORDERED: MORPHINE SULFATE 4 MG/ML CPJ (NOT FOR IM USE) IV PRN (06:00)
[2018-01-10] MEDS ORDERED: LEVOFLOXACIN 500MG PREMIX 100 ML IV SCH ×2 (06:00→17:00)
[2018-01-10] MEDS ORDERED: CLONIDINE 0.1MG TABLET PO PRN (06:00)
[2018-01-10] MEDS ORDERED: LORAZEPAM 2MG/ML CPJ IV PRN (06:00)
[2018-01-10] MEDS ORDERED: ONDANSETRON HCL 4MG/2ML VIAL IV PRN (06:00)
[2018-01-10] MEDS ORDERED: MAGNESIUM/ALUMINUM HYDROXIDE/SIMETHICONE 30ML UDC PO PRN (06:00)
[2018-01-10] MEDS ORDERED: DOCUSATE SODIUM 100MG CAPSULE PO PRN (06:00)
[2018-01-10] MEDS ORDERED: NOREPINEPHRINE 4MG in DEXT 5% WATER 250ML IV ONE ×2 (06:45→12:15)
[2018-01-10] MEDS: DEXT 5%/0.45% NACL 1000ML 1,000 ML IV SCH ×2 (07:00→17:39)
[2018-01-10] MEDS ORDERED: LIDOCAINE HCL/PF 1% 10 MG/ML 5ML VIAL ONE (07:53)
[2018-01-10] MEDS: ASPIRIN 81MG EC TABLET PO SCH (09:00)
[2018-01-10] MEDS ORDERED: DOPAMINE 400MG PREMIX 250 ML IV STA (09:40)
[2018-01-10] MEDS ORDERED: PROPOFOL 200MG/20ML VIAL IV ONE (10:45)
[2018-01-10] MEDS ORDERED: PROPOFOL 10MG/ML 100ML 100 ML IV PRN (10:48)
[2018-01-10 11:05] LABS: T4 FREE 1.47 ng/dL (0.76-1.46)
[2018-01-10 11:21] LABS: DIGOXIN < 0.1 ng/mL (0.9-2.0)
[2018-01-10] MEDS ORDERED: IOHEXOL-350 100 ML BOTTLE ONE (11:27)
[2018-01-10 17:46] LABS: CREATINE KINASE MB FRACTION 32.8 ng/mL (0.5-3.6)
[2018-01-10] MEDS ORDERED: NOREPINEPHRINE 4 MG in DEXT 5% WATER 246 ML IV PRN (18:00)
[2018-01-10] MEDS ORDERED: PHENYLEPHRINE 40 MG in DEXT 5% WATER 246 ML IV PRN (19:30)
[2018-01-10] MEDS ORDERED: NA PHOS,M-B/NA PHOS,DI-BA ENEMA 118ML PR PRN (21:00)
[2018-01-10] MEDS: DOPAMINE 400MG PREMIX 250 ML IV PRN (23:40)
[2018-01-11] VITALS (58 sets, daily range): BP systolic 79–153; BP diastolic 36–108
[2018-01-11] MEDS: PHENYLEPHRINE 80 MG in DEXT 5% WATER 492 ML IV PRN ×2 (00:33→22:04)
[2018-01-11] MEDS: NOREPINEPHRINE 16 MG in DEXT 5% WATER 234 ML IV PRN ×3 (00:34→22:04)
[2018-01-11 02:08] LABS: CREATINE KINASE MB FRACTION 38.2 ng/mL (0.5-3.6)
[2018-01-11 05:41] LABS: HEMATOCRIT. 34.5 % (36.0-48.0); HEMOGLOBIN. 10.2 g/dL (12.0-16.0); MEAN CORPUSCULAR HEMOGLOBIN 23.2 pg (28.0-32.0); MEAN PLATELET VOLUME 9.2 fl (7.4-10.4); PLATELET 174 x1000/uL (130-400); RED BLOOD CELL COUNT 4.43 mill/uL (4.2-5.4); RED CELL DISTRIBUTION WIDTH 25.7 % (11.6-14.6)
[2018-01-11 06:08] LABS: CHLORIDE 105 mEq/L (98-107)
[2018-01-11 06:33] LABS: CREATINE KINASE 457 IU/L (26-192); LDL CHOLESTEROL 29 mg/dL (5-100); T4 FREE 1.26 ng/dL (0.76-1.46)
[2018-01-11 06:34] LABS: CREATINE KINASE MB FRACTION 34.8 ng/mL (0.5-3.6); HDL CHOLESTEROL 29 mg/dL (40-59)
[2018-01-11] MEDS ORDERED: SODIUM CHLORIDE 0.9% 1,000 ML IV SCH (08:15)
[2018-01-11 08:17] LABS: BG BASE EXCESS -3.8 mmol/L (-2.0-2.0); BG CARBOXYHEMOGLOBIN 0.4 % (0.5-1.5); BG DEOXYHEMOGLOBIN 4.4 % (0.0-5.0); BG FRACTION INSPIRED OXYGEN 75; BG METHEMOGLOBIN 0.1 % (0.0-1.5); BG OXYGEN SATURATION 95.6 % (92.0-98.5); BG OXYHEMOGLOBIN 95.1 % (94.0-97.0); BG PCO2 42.8 mmHg (35.0-45.0); BG PH 7.328 (7.350-7.450); BG PO2 85.4 mmHg (75.0-100.0); BG SAMPLE SITE RIGHT RADIAL; BG TIDAL VOLUME(mL) 500 mL; BG TOTAL HEMOGLOBIN 10.5 g/dL (12.0-18.0); BG VENT MODE VENT - A/C; BG VENT RATE 14 set
[2018-01-11] MEDS: IPRATROPIUM/ALBUTEROL 0.5-3(2.5)MG/3ML NEB INH PRN ×3 (08:53→16:40)
[2018-01-11] MEDS: ASPIRIN 81MG EC TABLET PO SCH (09:49)
[2018-01-11 12:14] LABS: NUCLEATED RED BLOOD CELLS 5 /100 WBC; PLATELET ESTIMATE NORMAL
[2018-01-11 13:42] LABS: INR 3.9; PROTHROMBIN TIME 40.2 sec (9.4-11.6)
[2018-01-11] MEDS: PANTOPRAZOLE SODIUM 40 MG/VIAL IV SCH (14:36)
[2018-01-11] MEDS: CEFEPIME 1,000 MG in DEXTROSE 5% WATER 50 ML IV SCH (15:17)
[2018-01-11] MEDS: DOPAMINE 400MG PREMIX 250 ML IV PRN (15:18)
[2018-01-11 16:21] LABS: CREATINE KINASE MB FRACTION 23.9 ng/mL (0.5-3.6)
[2018-01-11] MEDS: LEVOFLOXACIN 250MG PREMIX 50 ML IV SCH (18:29)
[2018-01-12] VITALS (93 sets, daily range): BP systolic 54–159; BP diastolic 23–104
[2018-01-12] MEDS: PROPOFOL 10MG/ML 100ML 100 ML IV PRN ×2 (00:15→04:31)
[2018-01-12] MEDS: PHENYLEPHRINE 80 MG in DEXT 5% WATER 492 ML IV PRN ×3 (02:38→20:36)
[2018-01-12] MEDS: CEFEPIME 1,000 MG in DEXTROSE 5% WATER 50 ML IV SCH ×2 (02:38→15:47)
[2018-01-12 06:36] LABS: HEMATOCRIT. 30.1 % (36.0-48.0); HEMOGLOBIN. 9.4 g/dL (12.0-16.0); MEAN CORPUSCULAR HEMOGLOBIN 23.4 pg (28.0-32.0); MEAN CORPUSCULAR VOLUME 74.9 fL (81.0-99.0); MEAN PLATELET VOLUME 9.1 fl (7.4-10.4); PLATELET 190 x1000/uL (130-400); RED BLOOD CELL COUNT 4.02 mill/uL (4.2-5.4); RED CELL DISTRIBUTION WIDTH 25.1 % (11.6-14.6)
[2018-01-12] MEDS: ASPIRIN 81MG EC TABLET PO SCH (09:03)
[2018-01-12] MEDS: PANTOPRAZOLE SODIUM 40 MG/VIAL IV SCH (09:03)
[2018-01-12] MEDS: NOREPINEPHRINE 16 MG in DEXT 5% WATER 234 ML IV PRN (11:29)
[2018-01-12] MEDS: DOPAMINE 400MG PREMIX 250 ML IV PRN (11:34)
[2018-01-12 11:58] LABS: BG BASE EXCESS -5.7 mmol/L (-2.0-2.0); BG CARBOXYHEMOGLOBIN 0.5 % (0.5-1.5); BG DEOXYHEMOGLOBIN 4.3 % (0.0-5.0); BG HCO3 ACT 19.5 mmol/L (22.0-26.0); BG METHEMOGLOBIN 0.2 % (0.0-1.5); BG OXYGEN SATURATION 95.7 % (92.0-98.5); BG PO2 84.3 mmHg (75.0-100.0); BG SAMPLE SITE RIGHT RADIAL; BG TIDAL VOLUME(mL) 500 mL; BG VENT MODE VENT - A/C; BG VENT RATE 14 set
[2018-01-12 11:59] LABS: NUCLEATED RED BLOOD CELLS 4 /100 WBC
[2018-01-12 12:02] LABS: PLATELET ESTIMATE NORMAL
[2018-01-12] MEDS: SODIUM CHLORIDE 0.9% 1,000 ML IV SCH ×2 (13:50→16:06)
[2018-01-12] MEDS: LEVOFLOXACIN 250MG PREMIX 50 ML IV SCH (17:25)
[2018-01-12] MEDS: IPRATROPIUM/ALBUTEROL 0.5-3(2.5)MG/3ML NEB INH PRN (20:42)
[2018-01-12] MEDS: NYSTATIN POWDER 15GM TOP SCH (21:00)
[2018-01-13] VITALS (73 sets, daily range): BP systolic 65–167; BP diastolic 27–129
[2018-01-13] MEDS: IPRATROPIUM/ALBUTEROL 0.5-3(2.5)MG/3ML NEB INH PRN ×3 (00:04→21:10)
[2018-01-13] MEDS: CEFEPIME 1,000 MG in DEXTROSE 5% WATER 50 ML IV SCH ×2 (05:11→15:07)
[2018-01-13] MEDS: PHENYLEPHRINE 80 MG in DEXT 5% WATER 492 ML IV PRN ×2 (05:33→19:34)
[2018-01-13 07:09] LABS: INR 3.1; PROTHROMBIN TIME 32.5 sec (9.4-11.6)
[2018-01-13] MEDS: NYSTATIN POWDER 15GM TOP SCH ×2 (10:14→21:30)
[2018-01-13] MEDS: PANTOPRAZOLE SODIUM 40 MG/VIAL IV SCH (10:14)
[2018-01-13] MEDS ORDERED: MORPHINE SULFATE 4 MG/ML CPJ (NOT FOR IM USE) IV PRN (10:15)
[2018-01-13] MEDS: ASPIRIN 81MG EC TABLET PO SCH (10:15)
[2018-01-13] MEDS ORDERED: LORAZEPAM 2MG/ML CPJ IV PRN (10:15)
[2018-01-13 11:42] LABS: PROTHROMBIN TIME 31.2 sec (9.4-11.6)
[2018-01-13] MEDS: SODIUM CHLORIDE 0.9% 1,000 ML IV SCH (18:54)
[2018-01-13] MEDS: PROPOFOL 10MG/ML 100ML 100 ML IV PRN (20:59)
[2018-01-13] MEDS: SILVER SULFADIAZINE 1% CREAM 50GM TOP SCH (21:00)
[2018-01-14] VITALS (107 sets, daily range): BP systolic 50–191; BP diastolic 22–106
[2018-01-14] MEDS ORDERED: IPRATROPIUM BROMIDE (0.02%) 0.5MG/2.5ML NEB ONE (00:38)
[2018-01-14] MEDS ORDERED: ALBUTEROL (0.083%) 2.5MG/3ML NEB ONE (00:39)
[2018-01-14] MEDS: CEFEPIME 1,000 MG in DEXTROSE 5% WATER 50 ML IV SCH ×2 (02:53→15:02)
[2018-01-14] MEDS: PHENYLEPHRINE 80 MG in DEXT 5% WATER 492 ML IV PRN (03:17)
[2018-01-14] MEDS: PROPOFOL 10MG/ML 100ML 100 ML IV PRN (03:50)
[2018-01-14] MEDS: IPRATROPIUM/ALBUTEROL 0.5-3(2.5)MG/3ML NEB INH PRN ×3 (04:44→16:17)
[2018-01-14] MEDS: SODIUM CHLORIDE 0.9% 1,000 ML IV SCH (05:45)
[2018-01-14 06:33] LABS: HEMATOCRIT. 29.8 % (36.0-48.0); HEMOGLOBIN. 8.9 g/dL (12.0-16.0); MEAN CORPUSCULAR VOLUME 77.1 fL (81.0-99.0); MEAN PLATELET VOLUME 9.1 fl (7.4-10.4); PLATELET 190 x1000/uL (130-400); RED BLOOD CELL COUNT 3.86 mill/uL (4.2-5.4); RED CELL DISTRIBUTION WIDTH 24.5 % (11.6-14.6)
[2018-01-14 06:34] LABS: CHLORIDE 105 mEq/L (98-107)
[2018-01-14 06:39] LABS: INR 3.8; PROTHROMBIN TIME 39.5 sec (9.4-11.6)
[2018-01-14 08:26] LABS: BG BASE EXCESS -5.6 mmol/L (-2.0-2.0); BG CARBOXYHEMOGLOBIN 0.5 % (0.5-1.5); BG DEOXYHEMOGLOBIN 2.5 % (0.0-5.0); BG HCO3 ACT 20.4 mmol/L (22.0-26.0); BG METHEMOGLOBIN 0.1 % (0.0-1.5); BG OXYGEN SATURATION 97.5 % (92.0-98.5); BG OXYHEMOGLOBIN 96.9 % (94.0-97.0); BG PCO2 41.9 mmHg (35.0-45.0); BG PH 7.305 (7.350-7.450); BG PO2 104.3 mmHg (75.0-100.0); BG SAMPLE SITE RIGHT RADIAL; BG TIDAL VOLUME(mL) 500 mL; BG TOTAL HEMOGLOBIN 10.5 g/dL (12.0-18.0); BG VENT MODE VENT - A/C; BG VENT RATE 14 set
[2018-01-14] MEDS: ASPIRIN 81MG EC TABLET PO SCH (08:39)
[2018-01-14] MEDS: PANTOPRAZOLE SODIUM 40 MG/VIAL IV SCH (08:39)
[2018-01-14] MEDS: NYSTATIN POWDER 15GM TOP SCH ×2 (08:40→22:19)
[2018-01-14] MEDS: NOREPINEPHRINE 16 MG in DEXT 5% WATER 234 ML IV PRN (12:44)
[2018-01-14] MEDS ORDERED: ALBUMIN HUMAN 25GM/500ML (5%) IV SCH (13:00)
[2018-01-14] MEDS ORDERED: LIDOCAINE HCL/PF 1% 2ML VIAL ONE (13:47)
[2018-01-14 13:54] LABS: NUCLEATED RED BLOOD CELLS 8 /100 WBC
[2018-01-14 13:55] LABS: PLATELET ESTIMATE NORMAL
[2018-01-14] MEDS: SILVER SULFADIAZINE 1% CREAM 50GM TOP SCH (21:00)
[2018-01-15] VITALS (92 sets, daily range): BP systolic 81–127; BP diastolic 25–109
[2018-01-15] MEDS: PROPOFOL 10MG/ML 100ML 100 ML IV PRN ×3 (00:30→17:23)
[2018-01-15] MEDS: CEFEPIME 1,000 MG in DEXTROSE 5% WATER 50 ML IV SCH ×2 (02:10→14:29)
[2018-01-15 06:19] LABS: BASOPHILS % 0.5 % (0.0-2.0); EOSINOPHILS % 2.1 % (0.0-5.0); HEMATOCRIT. 29.3 % (36.0-48.0); LYMPHOCYTES % 13.6 % (20.0-50.0); MEAN CORPUSCULAR HEMOGLOBIN 23.4 pg (28.0-32.0); MEAN CORPUSCULAR VOLUME 76.3 fL (81.0-99.0); MEAN PLATELET VOLUME 8.8 fl (7.4-10.4); MONOCYTES % 12.7 % (2.0-8.0); NEUTROPHILS % 71.1 % (40.0-76.0); PLATELET 162 x1000/uL (130-400); RED BLOOD CELL COUNT 3.84 mill/uL (4.2-5.4); RED CELL DISTRIBUTION WIDTH 25.1 % (11.6-14.6)
[2018-01-15 06:22] LABS: INR 2.8; PROTHROMBIN TIME 29.6 sec (9.4-11.6)
[2018-01-15 06:30] LABS: CHLORIDE 106 mEq/L (98-107)
[2018-01-15] MEDS: NYSTATIN POWDER 15GM TOP SCH ×2 (08:27→20:53)
[2018-01-15] MEDS: SILVER SULFADIAZINE 1% CREAM 50GM TOP SCH (08:27)
[2018-01-15] MEDS: IPRATROPIUM/ALBUTEROL 0.5-3(2.5)MG/3ML NEB INH PRN ×3 (08:30→16:13)
[2018-01-15] MEDS: PANTOPRAZOLE SODIUM 40 MG/VIAL IV SCH (09:06)
[2018-01-15] MEDS: SODIUM CHLORIDE 0.9% 1,000 ML IV SCH ×2 (09:07→16:49)
[2018-01-15] MEDS ORDERED: SODIUM CHLORIDE 0.9% 1,000 ML IV ONE (11:00)
[2018-01-15 12:59] LABS: BG BASE EXCESS -5.3 mmol/L (-2.0-2.0); BG CARBOXYHEMOGLOBIN 0.8 % (0.5-1.5); BG DEOXYHEMOGLOBIN 2.8 % (0.0-5.0); BG FRACTION INSPIRED OXYGEN 40; BG METHEMOGLOBIN 0.3 % (0.0-1.5); BG OXYGEN SATURATION 97.2 % (92.0-98.5); BG OXYHEMOGLOBIN 96.1 % (94.0-97.0); BG PCO2 43.8 mmHg (35.0-45.0); BG PH 7.298 (7.350-7.450); BG PO2 98.4 mmHg (75.0-100.0); BG PRESSURE SUPPORT 12; BG SAMPLE SITE RIGHT RADIAL; BG TIDAL VOLUME(mL) 500 mL; BG TOTAL HEMOGLOBIN 10.7 g/dL (12.0-18.0); BG VENT MODE VENT - SIMV; BG VENT RATE 8 set
[2018-01-15] MEDS: NOREPINEPHRINE 16 MG in DEXT 5% WATER 234 ML IV PRN (19:33)
[2018-01-16] VITALS (95 sets, daily range): BP systolic 76–133; BP diastolic 43–88
[2018-01-16] MEDS ORDERED: PROPOFOL 10MG/ML 100ML 100 ML IV PRN (00:30)
[2018-01-16] MEDS: CEFEPIME 1,000 MG in DEXTROSE 5% WATER 50 ML IV SCH ×2 (03:19→15:41)
[2018-01-16] MEDS: SODIUM CHLORIDE 0.9% 1,000 ML IV SCH ×2 (05:30→11:38)
[2018-01-16 07:26] LABS: INR 2.1; PROTHROMBIN TIME 22.3 sec (9.4-11.6)
[2018-01-16 08:07] LABS: BG BASE EXCESS -5.7 mmol/L (-2.0-2.0); BG CARBOXYHEMOGLOBIN 0.9 % (0.5-1.5); BG DEOXYHEMOGLOBIN 1.2 % (0.0-5.0); BG HCO3 ACT 20.4 mmol/L (22.0-26.0); BG METHEMOGLOBIN 0.3 % (0.0-1.5); BG OXYGEN SATURATION 98.8 % (92.0-98.5); BG OXYHEMOGLOBIN 97.6 % (94.0-97.0); BG PCO2 42.7 mmHg (35.0-45.0); BG PH 7.297 (7.350-7.450); BG PO2 127.4 mmHg (75.0-100.0); BG SAMPLE SITE RIGHT RADIAL; BG TIDAL VOLUME(mL) 500 mL; BG VENT MODE VENT - SIMV; BG VENT RATE 8 set
[2018-01-16] MEDS: IPRATROPIUM/ALBUTEROL 0.5-3(2.5)MG/3ML NEB INH PRN ×4 (08:32→20:28)
[2018-01-16] MEDS: PANTOPRAZOLE SODIUM 40 MG/VIAL IV SCH (11:21)
[2018-01-16] MEDS: SILVER SULFADIAZINE 1% CREAM 50GM TOP SCH (11:26)
[2018-01-16] MEDS: NYSTATIN POWDER 15GM TOP SCH ×2 (11:26→20:41)
[2018-01-16] MEDS ORDERED: ALBUMIN HUMAN 25GM/100ML (25%) IV NR (11:45)
[2018-01-16 12:26] LABS: BG BASE EXCESS -4.8 mmol/L (-2.0-2.0); BG CPAP (cmH2O) 0 cm(H2O); BG DEOXYHEMOGLOBIN 2.9 % (0.0-5.0); BG HCO3 ACT 21.5 mmol/L (22.0-26.0); BG METHEMOGLOBIN 0.3 % (0.0-1.5); BG OXYGEN SATURATION 97.1 % (92.0-98.5); BG OXYHEMOGLOBIN 95.8 % (94.0-97.0); BG PCO2 45.2 mmHg (35.0-45.0); BG PH 7.295 (7.350-7.450); BG PO2 96.5 mmHg (75.0-100.0); BG SAMPLE SITE RIGHT RADIAL; BG TOTAL HEMOGLOBIN 9.9 g/dL (12.0-18.0); BG VENT MODE VENT - CPAP
[2018-01-16] MEDS ORDERED: FUROSEMIDE 40MG/4ML VIAL IVP NR ×2 (12:30→19:44)
[2018-01-17] VITALS (93 sets, daily range): BP systolic 87–158; BP diastolic 48–93
[2018-01-17] MEDS: IPRATROPIUM/ALBUTEROL 0.5-3(2.5)MG/3ML NEB INH PRN ×6 (00:09→20:09)
[2018-01-17] MEDS: CEFEPIME 1,000 MG in DEXTROSE 5% WATER 50 ML IV SCH ×2 (02:11→15:33)
[2018-01-17] MEDS ORDERED: PROPOFOL 10MG/ML 100ML 100 ML IV PRN (03:15)
[2018-01-17 08:32] LABS: BG BASE EXCESS -3.3 mmol/L (-2.0-2.0); BG CARBOXYHEMOGLOBIN 0.8 % (0.5-1.5); BG DEOXYHEMOGLOBIN 1.4 % (0.0-5.0); BG FRACTION INSPIRED OXYGEN 40; BG HCO3 ACT 23.5 mmol/L (22.0-26.0); BG METHEMOGLOBIN 0.2 % (0.0-1.5); BG OXYGEN SATURATION 98.6 % (92.0-98.5); BG OXYHEMOGLOBIN 97.6 % (94.0-97.0); BG PH 7.282 (7.350-7.450); BG PRESSURE SUPPORT 12; BG SAMPLE SITE RIGHT RADIAL; BG TIDAL VOLUME(mL) 500 mL; BG TOTAL HEMOGLOBIN 9.5 g/dL (12.0-18.0); BG VENT MODE VENT - SIMV; BG VENT RATE 8 set
[2018-01-17 08:46] LABS: BASOPHILS % 0.3 % (0.0-2.0); EOSINOPHILS % 1.7 % (0.0-5.0); HEMATOCRIT. 27.5 % (36.0-48.0); HEMOGLOBIN. 8.4 g/dL (12.0-16.0); LYMPHOCYTES % 10.3 % (20.0-50.0); MEAN CORPUSCULAR HEMOGLOBIN 23.7 pg (28.0-32.0); MEAN CORPUSCULAR VOLUME 77.3 fL (81.0-99.0); MEAN PLATELET VOLUME 9.1 fl (7.4-10.4); MONOCYTES % 11.6 % (2.0-8.0); NEUTROPHILS % 76.1 % (40.0-76.0); PLATELET 157 x1000/uL (130-400); RED BLOOD CELL COUNT 3.56 mill/uL (4.2-5.4); RED CELL DISTRIBUTION WIDTH 23.7 % (11.6-14.6)
[2018-01-17 08:55] LABS: INR 1.7; PARTIAL THROMBOPLASTIN TIME 36.2 sec (23.4-31.0); PROTHROMBIN TIME 17.7 sec (9.4-11.6)
[2018-01-17] MEDS: SODIUM CHLORIDE 0.9% 1,000 ML IV SCH (09:14)
[2018-01-17] MEDS: PANTOPRAZOLE SODIUM 40 MG/VIAL IV SCH (09:15)
[2018-01-17] MEDS: SILVER SULFADIAZINE 1% CREAM 50GM TOP SCH (09:15)
[2018-01-17] MEDS: NYSTATIN POWDER 15GM TOP SCH ×2 (09:15→20:25)
[2018-01-17 09:23] LABS: CHLORIDE 109 mEq/L (98-107)
[2018-01-17 09:36] LABS: PHOSPHORUS 2.3 mg/dL (2.5-4.9)
[2018-01-17] MEDS ORDERED: ALBUMIN HUMAN 25GM/100ML (25%) IV NR (09:45)
[2018-01-17] MEDS ORDERED: FUROSEMIDE 40MG/4ML VIAL IVP NR ×2 (09:45→21:00)
[2018-01-17] MEDS: DOCUSATE SODIUM SUGAR FREE 100MG/10ML UDC NG PRN (10:25)
[2018-01-18] VITALS (82 sets, daily range): BP systolic 80–129; BP diastolic 47–74
[2018-01-18] MEDS: IPRATROPIUM/ALBUTEROL 0.5-3(2.5)MG/3ML NEB INH PRN ×5 (00:10→16:10)
[2018-01-18] MEDS: CEFEPIME 1,000 MG in DEXTROSE 5% WATER 50 ML IV SCH ×2 (02:02→16:50)
[2018-01-18 06:36] LABS: BASOPHILS % 0.4 % (0.0-2.0); EOSINOPHILS % 1.1 % (0.0-5.0); HEMATOCRIT. 27.6 % (36.0-48.0); HEMOGLOBIN. 8.3 g/dL (12.0-16.0); LYMPHOCYTES % 12.6 % (20.0-50.0); MEAN CORPUSCULAR HEMOGLOBIN 23.7 pg (28.0-32.0); MEAN CORPUSCULAR VOLUME 78.4 fL (81.0-99.0); MEAN PLATELET VOLUME 8.9 fl (7.4-10.4); MONOCYTES % 12.4 % (2.0-8.0); NEUTROPHILS % 73.5 % (40.0-76.0); PLATELET 169 x1000/uL (130-400); RED BLOOD CELL COUNT 3.52 mill/uL (4.2-5.4); RED CELL DISTRIBUTION WIDTH 23.8 % (11.6-14.6)
[2018-01-18 06:47] LABS: CHLORIDE 109 mEq/L (98-107)
[2018-01-18 06:54] LABS: PHOSPHORUS 2.2 mg/dL (2.5-4.9)
[2018-01-18] MEDS: PANTOPRAZOLE SODIUM 40 MG/VIAL IV SCH (08:08)
[2018-01-18] MEDS: FUROSEMIDE 40MG/4ML VIAL IVP SCH ×2 (08:08→17:15)
[2018-01-18] MEDS: SILVER SULFADIAZINE 1% CREAM 50GM TOP SCH (08:08)
[2018-01-18] MEDS: NYSTATIN POWDER 15GM TOP SCH ×2 (08:09→21:04)
[2018-01-18 08:18] LABS: BG BASE EXCESS -4.4 mmol/L (-2.0-2.0); BG CARBOXYHEMOGLOBIN 1.2 % (0.5-1.5); BG DEOXYHEMOGLOBIN 1.3 % (0.0-5.0); BG FRACTION INSPIRED OXYGEN 40; BG HCO3 ACT 21.9 mmol/L (22.0-26.0); BG METHEMOGLOBIN 0.3 % (0.0-1.5); BG OXYGEN SATURATION 98.7 % (92.0-98.5); BG OXYHEMOGLOBIN 97.2 % (94.0-97.0); BG PCO2 46.3 mmHg (35.0-45.0); BG PH 7.293 (7.350-7.450); BG PO2 129.4 mmHg (75.0-100.0); BG PRESSURE SUPPORT 12; BG SAMPLE SITE RIGHT RADIAL; BG TIDAL VOLUME(mL) 500 mL; BG TOTAL HEMOGLOBIN 8.6 g/dL (12.0-18.0); BG VENT MODE VENT - SIMV; BG VENT RATE 8 set
[2018-01-18] MEDS: SODIUM CHLORIDE 0.9% 1,000 ML IV SCH (11:06)
[2018-01-18] MEDS: DIPHENHYDRAMINE 50MG/ML VIAL IV PRN (21:04)
[2018-01-18] MEDS: MORPHINE SULFATE 4 MG/ML CPJ (NOT FOR IM USE) IV PRN (22:40)
[2018-01-19] VITALS (54 sets, daily range): BP systolic 63–160; BP diastolic 26–82
[2018-01-19] MEDS: DIPHENHYDRAMINE 50MG/ML VIAL IV PRN (03:27)
[2018-01-19] MEDS: MORPHINE SULFATE 4 MG/ML CPJ (NOT FOR IM USE) IV PRN (04:40)
[2018-01-19] MEDS: FUROSEMIDE 40MG/4ML VIAL IVP SCH (06:35)
[2018-01-19] MEDS: IPRATROPIUM/ALBUTEROL 0.5-3(2.5)MG/3ML NEB INH PRN ×4 (08:18→20:09)
[2018-01-19] MEDS: SODIUM CHLORIDE 0.9% 1,000 ML IV SCH ×2 (09:44→18:54)
[2018-01-19] MEDS: SILVER SULFADIAZINE 1% CREAM 50GM TOP SCH (09:48)
[2018-01-19] MEDS: NYSTATIN POWDER 15GM TOP SCH ×2 (09:49→21:47)
[2018-01-19] MEDS: PANTOPRAZOLE SODIUM 40 MG/VIAL IV SCH (09:55)
[2018-01-19] MEDS ORDERED: ALBUMIN HUMAN 25GM/100ML (25%) IV SCH (11:15)
[2018-01-19 13:04] LABS: INR 1.3
[2018-01-19 14:42] LABS: BG CARBOXYHEMOGLOBIN 0.9 % (0.5-1.5); BG DEOXYHEMOGLOBIN 1.7 % (0.0-5.0); BG FRACTION INSPIRED OXYGEN 40; BG HCO3 ACT 20.4 mmol/L (22.0-26.0); BG METHEMOGLOBIN 0.2 % (0.0-1.5); BG OXYGEN SATURATION 98.3 % (92.0-98.5); BG OXYHEMOGLOBIN 97.2 % (94.0-97.0); BG PCO2 43.9 mmHg (35.0-45.0); BG PH 7.285 (7.350-7.450); BG PO2 115.7 mmHg (75.0-100.0); BG PRESSURE SUPPORT 8; BG SAMPLE SITE LEFT BRACHIAL; BG TOTAL HEMOGLOBIN 10.1 g/dL (12.0-18.0); BG VENT MODE VENT - CPAP
[2018-01-19] MEDS: NOREPINEPHRINE 16 MG in DEXT 5% WATER 234 ML IV PRN (18:36)
[2018-01-20] VITALS (68 sets, daily range): BP systolic 69–144; BP diastolic 30–98
[2018-01-20] MEDS: IPRATROPIUM/ALBUTEROL 0.5-3(2.5)MG/3ML NEB INH PRN (03:05)
[2018-01-20] MEDS: ENOXAPARIN 40MG/0.4ML SYR SUBCUT SCH (05:30)
[2018-01-20 05:46] LABS: BASOPHILS % 0.6 % (0.0-2.0); EOSINOPHILS % 1.8 % (0.0-5.0); HEMATOCRIT. 28.3 % (36.0-48.0); HEMOGLOBIN. 8.5 g/dL (12.0-16.0); LYMPHOCYTES % 9.5 % (20.0-50.0); MEAN CORPUSCULAR HEMOGLOBIN 23.8 pg (28.0-32.0); MEAN CORPUSCULAR VOLUME 79.3 fL (81.0-99.0); MEAN PLATELET VOLUME 8.5 fl (7.4-10.4); MONOCYTES % 9.3 % (2.0-8.0); NEUTROPHILS % 78.8 % (40.0-76.0); PLATELET 201 x1000/uL (130-400); RED BLOOD CELL COUNT 3.58 mill/uL (4.2-5.4); RED CELL DISTRIBUTION WIDTH 23.3 % (11.6-14.6)
[2018-01-20 07:59] LABS: BG BASE EXCESS -4.5 mmol/L (-2.0-2.0); BG CARBOXYHEMOGLOBIN 0.9 % (0.5-1.5); BG DEOXYHEMOGLOBIN 5.2 % (0.0-5.0); BG FRACTION INSPIRED OXYGEN 40; BG HCO3 ACT 21.5 mmol/L (22.0-26.0); BG METHEMOGLOBIN 0.3 % (0.0-1.5); BG OXYHEMOGLOBIN 93.6 % (94.0-97.0); BG PCO2 43.5 mmHg (35.0-45.0); BG PH 7.312 (7.350-7.450); BG PRESSURE SUPPORT 8; BG SAMPLE SITE RIGHT RADIAL; BG TOTAL HEMOGLOBIN 9.4 g/dL (12.0-18.0); BG VENT MODE VENT - CPAP
[2018-01-20] MEDS ORDERED: METHYLPREDNISOLONE SOD SUCC 125 MG/2 ML VIAL IV SCH (09:00)
[2018-01-20] MEDS ORDERED: ALBUMIN HUMAN 25GM/100ML (25%) IV SCH (09:00)
[2018-01-20] MEDS: FUROSEMIDE 40MG/4ML VIAL IVP SCH (09:22)
[2018-01-20] MEDS: PANTOPRAZOLE SODIUM 40 MG/VIAL IV SCH (09:22)
[2018-01-20] MEDS: DOCUSATE SODIUM SUGAR FREE 100MG/10ML UDC NG PRN (09:23)
[2018-01-20] MEDS: NYSTATIN POWDER 15GM TOP SCH ×2 (09:24→21:00)
[2018-01-20] MEDS: SILVER SULFADIAZINE 1% CREAM 50GM TOP SCH (09:25)
[2018-01-20] MEDS: METHYLPREDNISOLONE SOD SUCC 125 MG/2 ML VIAL IV SCH ×2 (16:37→20:59)
[2018-01-20] MEDS: SODIUM CHLORIDE 0.9% 1,000 ML IV SCH (16:38)
[2018-01-21] VITALS (30 sets, daily range): BP systolic 108–165; BP diastolic 62–103
[2018-01-21] MEDS: ENOXAPARIN 40MG/0.4ML SYR SUBCUT SCH (05:22)
[2018-01-21] MEDS: SODIUM CHLORIDE 0.9% 1,000 ML IV SCH (05:22)
[2018-01-21] MEDS: METHYLPREDNISOLONE SOD SUCC 125 MG/2 ML VIAL IV SCH (05:22)
[2018-01-21] MEDS: PANTOPRAZOLE SODIUM 40 MG/VIAL IV SCH (08:51)
[2018-01-21] MEDS: FUROSEMIDE 40MG/4ML VIAL IVP SCH (08:52)
[2018-01-21] MEDS: SILVER SULFADIAZINE 1% CREAM 50GM TOP SCH (08:52)
[2018-01-21] MEDS: NYSTATIN POWDER 15GM TOP SCH ×3 (08:52→21:40)
[2018-01-21] MEDS ORDERED: FUROSEMIDE 40MG/4ML VIAL IVP NR (10:11)
[2018-01-21] MEDS ORDERED: SCOPOLAMINE HYDROBROMIDE PATCH 72HR TD NR (11:00)
[2018-01-21] MEDS ORDERED: ALBUMIN HUMAN 12.5GM/50ML (25%) IV NR (11:00)
[2018-01-21 12:27] LABS: BG BASE EXCESS -4.2 mmol/L (-2.0-2.0); BG CARBOXYHEMOGLOBIN 0.5 % (0.5-1.5); BG DEOXYHEMOGLOBIN 9.4 % (0.0-5.0); BG FRACTION INSPIRED OXYGEN 40; BG HCO3 ACT 21.6 mmol/L (22.0-26.0); BG METHEMOGLOBIN 0.6 % (0.0-1.5); BG OXYHEMOGLOBIN 89.5 % (94.0-97.0); BG PCO2 42.7 mmHg (35.0-45.0); BG PH 7.322 (7.350-7.450); BG PO2 63.9 mmHg (75.0-100.0); BG PRESSURE SUPPORT 10; BG SAMPLE SITE RIGHT RADIAL; BG TOTAL HEMOGLOBIN 9.6 g/dL (12.0-18.0); BG VENT MODE VENT - CPAP
[2018-01-21] MEDS: METHYLPREDNISOLONE SOD SUCC 40 MG/ML VIAL IV SCH ×2 (14:05→21:40)
[2018-01-22] VITALS (70 sets, daily range): BP systolic 64–162; BP diastolic 42–113
[2018-01-22] MEDS: ENOXAPARIN 40MG/0.4ML SYR SUBCUT SCH (05:45)
[2018-01-22] MEDS: METHYLPREDNISOLONE SOD SUCC 40 MG/ML VIAL IV SCH (05:45)
[2018-01-22] MEDS: SODIUM CHLORIDE 0.9% 1,000 ML IV SCH (05:50)
[2018-01-22 06:05] LABS: HEMATOCRIT. 25.4 % (36.0-48.0); HEMOGLOBIN. 7.7 g/dL (12.0-16.0); MEAN CORPUSCULAR HEMOGLOBIN 24.7 pg (28.0-32.0); MEAN CORPUSCULAR VOLUME 81.3 fL (81.0-99.0); MEAN PLATELET VOLUME 8.8 fl (7.4-10.4); PLATELET 178 x1000/uL (130-400); RED BLOOD CELL COUNT 3.13 mill/uL (4.2-5.4); RED CELL DISTRIBUTION WIDTH 25.2 % (11.6-14.6)
[2018-01-22] MEDS: PANTOPRAZOLE SODIUM 40 MG/VIAL IV SCH (09:02)
[2018-01-22] MEDS: FUROSEMIDE 40MG/4ML VIAL IVP SCH (09:02)
[2018-01-22] MEDS: NYSTATIN POWDER 15GM TOP SCH (09:03)
[2018-01-22] MEDS: SILVER SULFADIAZINE 1% CREAM 50GM TOP SCH (09:03)
[2018-01-22 09:11] LABS: PHOSPHORUS 3.2 mg/dL (2.5-4.9)
[2018-01-22] MEDS ORDERED: SODIUM POLYSTYRENE SULFONATE 15 G/60 ML BOT PO NR (09:15)
[2018-01-22 10:45] LABS: BG BASE EXCESS -7.1 mmol/L (-2.0-2.0); BG BILEVEL POS AIRWAY PRESSURE ST=15/5; BG CARBOXYHEMOGLOBIN 0.3 % (0.5-1.5); BG DEOXYHEMOGLOBIN 1.6 % (0.0-5.0); BG FRACTION INSPIRED OXYGEN 40; BG HCO3 ACT 18.6 mmol/L (22.0-26.0); BG METHEMOGLOBIN 0.3 % (0.0-1.5); BG OXYHEMOGLOBIN 97.8 % (94.0-97.0); BG PCO2 38.3 mmHg (35.0-45.0); BG PH 7.305 (7.350-7.450); BG PRESSURE SUPPORT 10; BG SAMPLE SITE LEFT RADIAL; BG TOTAL HEMOGLOBIN 9.8 g/dL (12.0-18.0); BG VENT MODE MASK - BIPAP; BG VENT RATE 14 set
[2018-01-23] VITALS (48 sets, daily range): BP systolic 96–150; BP diastolic 48–94
[2018-01-23 01:32] LABS: HEMATOCRIT 31.2 % (36.0-48.0); HEMOGLOBIN 9.6 g/dL (12.0-16.0)
[2018-01-23 01:38] LABS: INR 1.3; PROTHROMBIN TIME 13.4 sec (9.4-11.6)
[2018-01-23 06:53] LABS: BASOPHILS % 0.1 % (0.0-2.0); EOSINOPHILS % 0.1 % (0.0-5.0); HEMATOCRIT. 31.4 % (36.0-48.0); HEMOGLOBIN. 9.6 g/dL (12.0-16.0); LYMPHOCYTES % 7.3 % (20.0-50.0); MEAN CORPUSCULAR HEMOGLOBIN 24.5 pg (28.0-32.0); MEAN CORPUSCULAR VOLUME 80.2 fL (81.0-99.0); MEAN PLATELET VOLUME 8.5 fl (7.4-10.4); MONOCYTES % 10.4 % (2.0-8.0); NEUTROPHILS % 82.1 % (40.0-76.0); PLATELET 223 x1000/uL (130-400); RED BLOOD CELL COUNT 3.91 mill/uL (4.2-5.4); RED CELL DISTRIBUTION WIDTH 24.8 % (11.6-14.6)
[2018-01-23] MEDS ORDERED: ASPIRIN 81MG TABLET PO SCH (09:00)
[2018-01-23] MEDS: FUROSEMIDE 40MG/4ML VIAL IVP SCH (09:20)
[2018-01-23] MEDS: METHYLPREDNISOLONE SOD SUCC 40 MG/ML VIAL IV SCH (09:20)
[2018-01-23] MEDS: ASPIRIN 81MG EC TABLET PO SCH (09:20)
[2018-01-23] MEDS: SILVER SULFADIAZINE 1% CREAM 50GM TOP SCH (09:22)
[2018-01-23] MEDS: NYSTATIN POWDER 15GM TOP SCH ×2 (09:22→21:34)
[2018-01-23] MEDS: PANTOPRAZOLE SODIUM 40 MG/VIAL IV SCH (09:24)
[2018-01-23 13:16] LABS: BG BASE EXCESS -3.9 mmol/L (-2.0-2.0); BG BILEVEL POS AIRWAY PRESSURE 15/5; BG CARBOXYHEMOGLOBIN 0.9 % (0.5-1.5); BG DEOXYHEMOGLOBIN 1.7 % (0.0-5.0); BG FRACTION INSPIRED OXYGEN 40; BG HCO3 ACT 22.5 mmol/L (22.0-26.0); BG METHEMOGLOBIN 0.3 % (0.0-1.5); BG OXYHEMOGLOBIN 97.1 % (94.0-97.0); BG PCO2 46.7 mmHg (35.0-45.0); BG SAMPLE SITE RIGHT RADIAL; BG TOTAL HEMOGLOBIN 10.8 g/dL (12.0-18.0); BG VENT MODE MASK - BIPAP; BG VENT RATE 14 set
[2018-01-23 15:47] LABS: NUCLEATED RED BLOOD CELLS 1 /100 WBC; PLATELET ESTIMATE NORMAL
[2018-01-23 18:36] LABS: BG BASE EXCESS -3.6 mmol/L (-2.0-2.0); BG BILEVEL POS AIRWAY PRESSURE 15/5; BG CARBOXYHEMOGLOBIN 0.4 % (0.5-1.5); BG DEOXYHEMOGLOBIN 2.5 % (0.0-5.0); BG FRACTION INSPIRED OXYGEN 40; BG HCO3 ACT 22.5 mmol/L (22.0-26.0); BG METHEMOGLOBIN 0.3 % (0.0-1.5); BG OXYHEMOGLOBIN 96.8 % (94.0-97.0); BG PCO2 44.8 mmHg (35.0-45.0); BG PH 7.318 (7.350-7.450); BG SAMPLE SITE RIGHT RADIAL; BG TOTAL HEMOGLOBIN 10.9 g/dL (12.0-18.0); BG VENT MODE MASK - BIPAP; BG VENT RATE 20 set
[2018-01-24] VITALS (24 sets, daily range): BP systolic 112–144; BP diastolic 54–98
[2018-01-24 05:46] LABS: HEMATOCRIT 31.8 % (36.0-48.0); HEMOGLOBIN 10.1 g/dL (12.0-16.0); MEAN CORPUSCULAR HEMOGLOBIN 25.2 pg (28.0-32.0); MEAN CORPUSCULAR VOLUME 79.7 fL (81.0-99.0); PLATELET 236 x1000/uL (130-400); RED BLOOD CELL COUNT 3.98 mill/uL (4.2-5.4); RED CELL DISTRIBUTION WIDTH 24.6 % (11.6-14.6)
[2018-01-24 06:44] LABS: CHLORIDE 113 mEq/L (98-107)
[2018-01-24 08:22] LABS: BG BASE EXCESS -1.3 mmol/L (-2.0-2.0); BG BILEVEL POS AIRWAY PRESSURE 15/5; BG CARBOXYHEMOGLOBIN 1.1 % (0.5-1.5); BG DEOXYHEMOGLOBIN 1.9 % (0.0-5.0); BG FRACTION INSPIRED OXYGEN 40; BG HCO3 ACT 24.9 mmol/L (22.0-26.0); BG METHEMOGLOBIN 0.2 % (0.0-1.5); BG OXYHEMOGLOBIN 96.8 % (94.0-97.0); BG PCO2 48.1 mmHg (35.0-45.0); BG PH 7.332 (7.350-7.450); BG PO2 109.3 mmHg (75.0-100.0); BG SAMPLE SITE RIGHT RADIAL; BG TOTAL HEMOGLOBIN 11.2 g/dL (12.0-18.0); BG VENT MODE MASK - BIPAP; BG VENT RATE 20 set
[2018-01-24] MEDS: ASPIRIN 81MG EC TABLET PO SCH (09:07)
[2018-01-24] MEDS: METHYLPREDNISOLONE SOD SUCC 40 MG/ML VIAL IV SCH (09:07)
[2018-01-24] MEDS: PANTOPRAZOLE SODIUM 40 MG/VIAL IV SCH (09:07)
[2018-01-24] MEDS: FUROSEMIDE 40MG/4ML VIAL IVP SCH (09:07)
[2018-01-24] MEDS: NYSTATIN POWDER 15GM TOP SCH ×2 (09:08→23:54)
[2018-01-24] MEDS: SILVER SULFADIAZINE 1% CREAM 50GM TOP SCH (09:08)
[2018-01-24] MEDS: ACETYLCYSTEINE 200MG/ML 20% VIAL 4ML INH SCH ×2 (12:19→16:22)
[2018-01-24 14:33] LABS: BG CARBOXYHEMOGLOBIN 0.8 % (0.5-1.5); BG DEOXYHEMOGLOBIN 1.5 % (0.0-5.0); BG FRACTION INSPIRED OXYGEN 50; BG HCO3 ACT 24.5 mmol/L (22.0-26.0); BG METHEMOGLOBIN 0.3 % (0.0-1.5); BG OXYGEN SATURATION 98.5 % (92.0-98.5); BG OXYHEMOGLOBIN 97.4 % (94.0-97.0); BG PH 7.316 (7.350-7.450); BG SAMPLE SITE RIGHT RADIAL; BG VENT MODE MASK - AEROSOL
[2018-01-24] MEDS: IPRATROPIUM/ALBUTEROL 0.5-3(2.5)MG/3ML NEB HHN SCH (16:22)
[2018-01-25] VITALS (27 sets, daily range): BP systolic 114–172; BP diastolic 61–111
[2018-01-25] MEDS: IPRATROPIUM/ALBUTEROL 0.5-3(2.5)MG/3ML NEB HHN SCH ×5 (07:50→20:37)
[2018-01-25 08:24] LABS: BG BASE EXCESS 0.2 mmol/L (-2.0-2.0); BG BILEVEL POS AIRWAY PRESSURE ST=15/5; BG CARBOXYHEMOGLOBIN 0.9 % (0.5-1.5); BG FRACTION INSPIRED OXYGEN 40; BG HCO3 ACT 26.6 mmol/L (22.0-26.0); BG METHEMOGLOBIN 0.3 % (0.0-1.5); BG OXYHEMOGLOBIN 97.8 % (94.0-97.0); BG PCO2 51.3 mmHg (35.0-45.0); BG PH 7.333 (7.350-7.450); BG PO2 142.5 mmHg (75.0-100.0); BG PRESSURE SUPPORT 10; BG SAMPLE SITE LEFT RADIAL; BG TOTAL HEMOGLOBIN 10.9 g/dL (12.0-18.0); BG VENT MODE MASK - BIPAP; BG VENT RATE 20 set
[2018-01-25] MEDS: ASPIRIN 81MG EC TABLET PO SCH (10:17)
[2018-01-25] MEDS: PANTOPRAZOLE SODIUM 40 MG/VIAL IV SCH (10:17)
[2018-01-25] MEDS: METHYLPREDNISOLONE SOD SUCC 40 MG/ML VIAL IV SCH (10:17)
[2018-01-25] MEDS: FUROSEMIDE 40MG/4ML VIAL IVP SCH (10:17)
[2018-01-25] MEDS: SILVER SULFADIAZINE 1% CREAM 50GM TOP SCH (10:18)
[2018-01-25] MEDS: NYSTATIN POWDER 15GM TOP SCH ×2 (10:19→22:27)
[2018-01-25] MEDS: ACETYLCYSTEINE 200MG/ML 20% VIAL 4ML INH SCH (16:02)
[2018-01-26] VITALS (26 sets, daily range): BP systolic 102–158; BP diastolic 48–111
[2018-01-26] MEDS: ACETYLCYSTEINE 200MG/ML 20% VIAL 4ML INH SCH ×3 (00:52→16:16)
[2018-01-26] MEDS: IPRATROPIUM/ALBUTEROL 0.5-3(2.5)MG/3ML NEB HHN SCH ×6 (00:52→20:39)
[2018-01-26 05:50] LABS: HEMATOCRIT. 32.3 % (36.0-48.0); HEMOGLOBIN. 10.1 g/dL (12.0-16.0); MEAN CORPUSCULAR HEMOGLOBIN 25.1 pg (28.0-32.0); MEAN PLATELET VOLUME 8.5 fl (7.4-10.4); PLATELET 230 x1000/uL (130-400); RED BLOOD CELL COUNT 4.03 mill/uL (4.2-5.4); RED CELL DISTRIBUTION WIDTH 25.2 % (11.6-14.6)
[2018-01-26 05:55] LABS: CHLORIDE 115 mEq/L (98-107)
[2018-01-26] MEDS: FUROSEMIDE 40MG/4ML VIAL IVP SCH (08:37)
[2018-01-26] MEDS: PANTOPRAZOLE SODIUM 40 MG/VIAL IV SCH (08:37)
[2018-01-26] MEDS: PREDNISONE 20MG TABLET PO SCH (08:38)
[2018-01-26] MEDS: NYSTATIN POWDER 15GM TOP SCH ×2 (08:38→21:08)
[2018-01-26] MEDS: ASPIRIN 81MG EC TABLET PO SCH (08:38)
[2018-01-26] MEDS: SILVER SULFADIAZINE 1% CREAM 50GM TOP SCH (08:39)
[2018-01-26 18:38] LABS: PLATELET ESTIMATE NORMAL
[2018-01-27] VITALS (24 sets, daily range): BP systolic 92–135; BP diastolic 47–86
[2018-01-27] MEDS: ACETYLCYSTEINE 200MG/ML 20% VIAL 4ML INH SCH ×3 (00:10→15:39)
[2018-01-27] MEDS: IPRATROPIUM/ALBUTEROL 0.5-3(2.5)MG/3ML NEB HHN SCH ×6 (00:10→20:17)
[2018-01-27 06:20] LABS: BASOPHILS % 0.2 % (0.0-2.0); HEMATOCRIT. 29.8 % (36.0-48.0); HEMOGLOBIN. 9.1 g/dL (12.0-16.0); LYMPHOCYTES % 7.8 % (20.0-50.0); MEAN CORPUSCULAR HEMOGLOBIN 24.6 pg (28.0-32.0); MEAN CORPUSCULAR VOLUME 80.3 fL (81.0-99.0); MEAN PLATELET VOLUME 8.7 fl (7.4-10.4); MONOCYTES % 9.7 % (2.0-8.0); NEUTROPHILS % 81.3 % (40.0-76.0); PLATELET 209 x1000/uL (130-400); RED BLOOD CELL COUNT 3.71 mill/uL (4.2-5.4); RED CELL DISTRIBUTION WIDTH 25.8 % (11.6-14.6)
[2018-01-27 06:25] LABS: CHLORIDE 115 mEq/L (98-107)
[2018-01-27] MEDS: FUROSEMIDE 40MG/4ML VIAL IVP SCH (08:51)
[2018-01-27] MEDS: PREDNISONE 20MG TABLET PO SCH (08:52)
[2018-01-27] MEDS: ASPIRIN 81MG EC TABLET PO SCH (08:52)
[2018-01-27] MEDS: SILVER SULFADIAZINE 1% CREAM 50GM TOP SCH (08:52)
[2018-01-27] MEDS: PANTOPRAZOLE SODIUM 40 MG/VIAL IV SCH (08:52)
[2018-01-28] VITALS (31 sets, daily range): BP systolic 111–157; BP diastolic 29–107
[2018-01-28] MEDS: ACETYLCYSTEINE 200MG/ML 20% VIAL 4ML INH SCH ×3 (00:10→16:34)
[2018-01-28] MEDS: IPRATROPIUM/ALBUTEROL 0.5-3(2.5)MG/3ML NEB HHN SCH ×6 (00:10→20:57)
[2018-01-28 05:56] LABS: CHLORIDE 115 mEq/L (98-107)
[2018-01-28] MEDS: ASPIRIN 81MG EC TABLET PO SCH (10:00)
[2018-01-28] MEDS: FUROSEMIDE 40MG/4ML VIAL IVP SCH (10:00)
[2018-01-28] MEDS: DOCUSATE SODIUM SUGAR FREE 100MG/10ML UDC NG PRN (10:00)
[2018-01-28] MEDS: PANTOPRAZOLE SODIUM 40 MG/VIAL IV SCH (10:00)
[2018-01-28] MEDS: PREDNISONE 20MG TABLET PO SCH (10:00)
[2018-01-29] VITALS (54 sets, daily range): BP systolic 81–165; BP diastolic 31–133
[2018-01-29] MEDS: ACETYLCYSTEINE 200MG/ML 20% VIAL 4ML INH SCH ×3 (00:06→16:36)
[2018-01-29] MEDS: IPRATROPIUM/ALBUTEROL 0.5-3(2.5)MG/3ML NEB HHN SCH ×6 (00:06→19:56)
[2018-01-29 05:10] LABS: BASOPHILS % 0.4 % (0.0-2.0); EOSINOPHILS % 1.4 % (0.0-5.0); HEMATOCRIT. 29.8 % (36.0-48.0); HEMOGLOBIN. 9.1 g/dL (12.0-16.0); LYMPHOCYTES % 8.9 % (20.0-50.0); MEAN CORPUSCULAR HEMOGLOBIN 24.6 pg (28.0-32.0); MEAN CORPUSCULAR VOLUME 80.8 fL (81.0-99.0); MEAN PLATELET VOLUME 8.6 fl (7.4-10.4); MONOCYTES % 9.7 % (2.0-8.0); NEUTROPHILS % 79.6 % (40.0-76.0); PLATELET 204 x1000/uL (130-400); RED BLOOD CELL COUNT 3.69 mill/uL (4.2-5.4); RED CELL DISTRIBUTION WIDTH 26.2 % (11.6-14.6)
[2018-01-29 05:16] LABS: CHLORIDE 115 mEq/L (98-107)
[2018-01-29] MEDS: FUROSEMIDE 40MG/4ML VIAL IVP SCH (09:37)
[2018-01-29] MEDS: DOCUSATE SODIUM SUGAR FREE 100MG/10ML UDC NG PRN (09:37)
[2018-01-29] MEDS: ASPIRIN 81MG EC TABLET PO SCH (09:37)
[2018-01-29] MEDS: PANTOPRAZOLE SODIUM 40 MG/VIAL IV SCH (09:37)
[2018-01-29] MEDS ORDERED: RACEPINEPHRINE 2.25% 0.5ML NEB VIAL HHN NR (11:20)
[2018-01-29] MEDS ORDERED: PHYTONADIONE 10MG/ML AMP SUBCUT NR (11:30)
[2018-01-29] MEDS ORDERED: PHENYLEPHRINE HCL 0.5% 15ML NASAL SPRAY BOTHNSTRLS NR (11:45)
[2018-01-29] MEDS ORDERED: OXYMETAZOLINE HCL NASAL SPRAY 15ML BOTHNSTRLS NR (11:45)
[2018-01-29] MEDS: PROPOFOL 10MG/ML 100ML 100 ML IV PRN ×2 (13:47→19:34)
[2018-01-29 14:23] LABS: BG BASE EXCESS 7.7 mmol/L (-2.0-2.0); BG CARBOXYHEMOGLOBIN 0.8 % (0.5-1.5); BG DEOXYHEMOGLOBIN 4.5 % (0.0-5.0); BG FRACTION INSPIRED OXYGEN 50; BG HCO3 ACT 32.1 mmol/L (22.0-26.0); BG OXYGEN SATURATION 95.5 % (92.0-98.5); BG OXYHEMOGLOBIN 94.7 % (94.0-97.0); BG PCO2 44.6 mmHg (35.0-45.0); BG PH 7.475 (7.350-7.450); BG PO2 77.1 mmHg (75.0-100.0); BG SAMPLE SITE RIGHT RADIAL; BG TIDAL VOLUME(mL) 550 mL; BG TOTAL HEMOGLOBIN 9.2 g/dL (12.0-18.0); BG VENT MODE VENT - A/C; BG VENT RATE 14 set
[2018-01-29] MEDS ORDERED: SUCCINYLCHOLINE CHLORIDE 200MG/10ML VIAL IV ONE (14:36)
[2018-01-29] MEDS ORDERED: ETOMIDATE 2MG/ML 10ML VIAL IV ONE (14:36)
[2018-01-29] MEDS ORDERED: PIPERACILLIN/TAZ 3.375G PREMIX 50 ML IV SCH (15:00)
[2018-01-29 16:13] LABS: HEMATOCRIT. 28.2 % (36.0-48.0); HEMOGLOBIN. 8.7 g/dL (12.0-16.0); MEAN CORPUSCULAR HEMOGLOBIN 25.1 pg (28.0-32.0); MEAN CORPUSCULAR VOLUME 81.1 fL (81.0-99.0); MEAN PLATELET VOLUME 9.2 fl (7.4-10.4); PLATELET 191 x1000/uL (130-400); RED BLOOD CELL COUNT 3.48 mill/uL (4.2-5.4); RED CELL DISTRIBUTION WIDTH 25.5 % (11.6-14.6)
[2018-01-29 16:19] LABS: INR 1.3; PROTHROMBIN TIME 13.5 sec (9.4-11.6)
[2018-01-29 17:00] LABS: PLATELET ESTIMATE NORMAL
[2018-01-29] MEDS: DEXTROSE 5% WATER 1,000 ML IV SCH (17:06)
[2018-01-29] MEDS ORDERED: VANCOMYCIN 1500MG in DEXTROSE 5% WATER 250ML IV NR (18:00)
[2018-01-29] MEDS: MEROPENEM 1,000 MG in SODIUM CHLORIDE 0.9% 100 ML IV SCH (22:57)
[2018-01-30] VITALS (49 sets, daily range): BP systolic 90–120; BP diastolic 43–79
[2018-01-30] MEDS: IPRATROPIUM/ALBUTEROL 0.5-3(2.5)MG/3ML NEB HHN SCH ×6 (00:05→20:09)
[2018-01-30] MEDS: ACETYLCYSTEINE 200MG/ML 20% VIAL 4ML INH SCH ×3 (00:06→16:21)
[2018-01-30] MEDS: PROPOFOL 10MG/ML 100ML 100 ML IV PRN ×3 (03:39→19:33)
[2018-01-30 05:02] LABS: BASOPHILS % 0.2 % (0.0-2.0); EOSINOPHILS % 1.2 % (0.0-5.0); HEMATOCRIT. 27.6 % (36.0-48.0); HEMOGLOBIN. 8.8 g/dL (12.0-16.0); LYMPHOCYTES % 8.5 % (20.0-50.0); MEAN CORPUSCULAR HEMOGLOBIN 25.3 pg (28.0-32.0); MEAN CORPUSCULAR VOLUME 79.8 fL (81.0-99.0); MEAN PLATELET VOLUME 9.1 fl (7.4-10.4); MONOCYTES % 5.7 % (2.0-8.0); NEUTROPHILS % 84.4 % (40.0-76.0); PLATELET 182 x1000/uL (130-400); RED BLOOD CELL COUNT 3.46 mill/uL (4.2-5.4); RED CELL DISTRIBUTION WIDTH 26.2 % (11.6-14.6)
[2018-01-30 05:07] LABS: CHLORIDE 112 mEq/L (98-107)
[2018-01-30] MEDS: MEROPENEM 1,000 MG in SODIUM CHLORIDE 0.9% 100 ML IV SCH ×3 (05:29→21:42)
[2018-01-30 05:58] LABS: PHOSPHORUS 1.5 mg/dL (2.5-4.9)
[2018-01-30] MEDS ORDERED: POTASSIUM CHLORIDE INJ 40 MEQ in DEXT 5% WATER 250 ML IV ONE (06:45)
[2018-01-30] MEDS: DEXTROSE 5% WATER 1,000 ML IV SCH (07:53)
[2018-01-30] MEDS ORDERED: MAGNESIUM 2 G PREMIX 50 ML IV NR (08:00)
[2018-01-30 08:03] LABS: BG BASE EXCESS 0.7 mmol/L (-2.0-2.0); BG CARBOXYHEMOGLOBIN 1.2 % (0.5-1.5); BG DEOXYHEMOGLOBIN 2.9 % (0.0-5.0); BG FRACTION INSPIRED OXYGEN 50; BG HCO3 ACT 22.9 mmol/L (22.0-26.0); BG METHEMOGLOBIN 0.2 % (0.0-1.5); BG OXYGEN SATURATION 97.1 % (92.0-98.5); BG OXYHEMOGLOBIN 95.7 % (94.0-97.0); BG PCO2 27.9 mmHg (35.0-45.0); BG PH 7.533 (7.350-7.450); BG PO2 90.6 mmHg (75.0-100.0); BG SAMPLE SITE LEFT RADIAL; BG TIDAL VOLUME(mL) 550 mL; BG TOTAL HEMOGLOBIN 8.4 g/dL (12.0-18.0); BG VENT MODE VENT - A/C; BG VENT RATE 14 set
[2018-01-30] MEDS: PANTOPRAZOLE SODIUM 40 MG/VIAL IV SCH (09:39)
[2018-01-30] MEDS: VANCOMYCIN 750 MG PREMIX 150 ML IV SCH ×2 (09:39→22:33)
[2018-01-30] MEDS: FUROSEMIDE 40MG/4ML VIAL IVP SCH (09:40)
[2018-01-30] MEDS: KCL 20MEQ/100ML PREMIX 100 ML IV SCH ×2 (09:40→15:12)
[2018-01-30] MEDS ORDERED: PHYTONADIONE 10MG/ML AMP SUBCUT SCH (22:00)
[2018-01-31] VITALS (43 sets, daily range): BP systolic 88–121; BP diastolic 46–67
[2018-01-31] MEDS: IPRATROPIUM/ALBUTEROL 0.5-3(2.5)MG/3ML NEB HHN SCH ×6 (00:26→21:15)
[2018-01-31] MEDS: ACETYLCYSTEINE 200MG/ML 20% VIAL 4ML INH SCH ×3 (00:26→16:24)
[2018-01-31] MEDS: PROPOFOL 10MG/ML 100ML 100 ML IV PRN (03:23)
[2018-01-31] MEDS: MEROPENEM 1,000 MG in SODIUM CHLORIDE 0.9% 100 ML IV SCH ×3 (05:42→22:22)
[2018-01-31] MEDS: DEXTROSE 5% WATER 1,000 ML IV SCH ×3 (05:42→22:22)
[2018-01-31 05:54] LABS: BASOPHILS % 1.2 % (0.0-2.0); EOSINOPHILS % 1.6 % (0.0-5.0); HEMATOCRIT. 25.8 % (36.0-48.0); HEMOGLOBIN. 8.3 g/dL (12.0-16.0); LYMPHOCYTES % 8.2 % (20.0-50.0); MEAN CORPUSCULAR HEMOGLOBIN 25.7 pg (28.0-32.0); MEAN CORPUSCULAR VOLUME 79.9 fL (81.0-99.0); MONOCYTES % 5.2 % (2.0-8.0); NEUTROPHILS % 83.8 % (40.0-76.0); PLATELET 157 x1000/uL (130-400); RED BLOOD CELL COUNT 3.23 mill/uL (4.2-5.4); RED CELL DISTRIBUTION WIDTH 25.6 % (11.6-14.6)
[2018-01-31 06:11] LABS: CHLORIDE 110 mEq/L (98-107)
[2018-01-31 06:21] LABS: PHOSPHORUS 1.8 mg/dL (2.5-4.9)
[2018-01-31 08:58] LABS: BG BASE EXCESS 7.1 mmol/L (-2.0-2.0); BG CARBOXYHEMOGLOBIN 0.6 % (0.5-1.5); BG DEOXYHEMOGLOBIN 2.3 % (0.0-5.0); BG FRACTION INSPIRED OXYGEN 50; BG HCO3 ACT 29.4 mmol/L (22.0-26.0); BG METHEMOGLOBIN 0.2 % (0.0-1.5); BG OXYGEN SATURATION 97.7 % (92.0-98.5); BG OXYHEMOGLOBIN 96.9 % (94.0-97.0); BG PCO2 32.6 mmHg (35.0-45.0); BG PH 7.573 (7.350-7.450); BG PO2 99.7 mmHg (75.0-100.0); BG SAMPLE SITE LEFT RADIAL; BG TIDAL VOLUME(mL) 550 mL; BG VENT MODE VENT - A/C; BG VENT RATE 14 set
[2018-01-31] MEDS: FUROSEMIDE 40MG/4ML VIAL IVP SCH (09:03)
[2018-01-31] MEDS: PANTOPRAZOLE SODIUM 40 MG/VIAL IV SCH (09:03)
[2018-01-31] MEDS ORDERED: NA PHOS,M-B/NA PHOS,DI-BA ENEMA 118ML PR SCH (10:45)
[2018-01-31] MEDS ORDERED: POTASSIUM PHOS,M-BASIC-D-BASIC 15 MMOL in DEXT 5% WATER 245 ML IV SCH (12:00)
[2018-01-31] MEDS ORDERED: LORAZEPAM 2MG/ML CPJ IV PRN (19:00)
[2018-01-31] MEDS: VANCOMYCIN 1250MG in DEXTROSE 5% WATER 250ML IV SCH (22:22)
[2018-01-31 22:45] LABS: BG BASE EXCESS 5.5 mmol/L (-2.0-2.0); BG CARBOXYHEMOGLOBIN 0.7 % (0.5-1.5); BG DEOXYHEMOGLOBIN 2.5 % (0.0-5.0); BG FRACTION INSPIRED OXYGEN 50; BG METHEMOGLOBIN 0.1 % (0.0-1.5); BG OXYGEN SATURATION 97.5 % (92.0-98.5); BG OXYHEMOGLOBIN 96.7 % (94.0-97.0); BG PCO2 32.5 mmHg (35.0-45.0); BG PH 7.553 (7.350-7.450); BG PO2 100.2 mmHg (75.0-100.0); BG PRESSURE SUPPORT 15; BG SAMPLE SITE LEFT RADIAL; BG TIDAL VOLUME(mL) 550 mL; BG TOTAL HEMOGLOBIN 9.1 g/dL (12.0-18.0); BG VENT MODE VENT - SIMV; BG VENT RATE 10 set
[2018-02-01] VITALS (76 sets, daily range): BP systolic 83–115; BP diastolic 43–72
[2018-02-01] MEDS: IPRATROPIUM/ALBUTEROL 0.5-3(2.5)MG/3ML NEB HHN SCH ×6 (00:48→20:44)
[2018-02-01] MEDS: ACETYLCYSTEINE 200MG/ML 20% VIAL 4ML INH SCH ×3 (00:49→16:39)
[2018-02-01] MEDS: MEROPENEM 1,000 MG in SODIUM CHLORIDE 0.9% 100 ML IV SCH ×3 (06:32→22:52)
[2018-02-01 06:44] LABS: BASOPHILS % 0.5 % (0.0-2.0); EOSINOPHILS % 1.6 % (0.0-5.0); HEMATOCRIT. 25.1 % (36.0-48.0); HEMOGLOBIN. 7.9 g/dL (12.0-16.0); MEAN CORPUSCULAR HEMOGLOBIN 25.7 pg (28.0-32.0); MEAN CORPUSCULAR VOLUME 81.1 fL (81.0-99.0); MEAN PLATELET VOLUME 9.7 fl (7.4-10.4); NEUTROPHILS % 82.9 % (40.0-76.0); PLATELET 129 x1000/uL (130-400); RED BLOOD CELL COUNT 3.09 mill/uL (4.2-5.4); RED CELL DISTRIBUTION WIDTH 26.5 % (11.6-14.6)
[2018-02-01 07:08] LABS: CHLORIDE 109 mEq/L (98-107)
[2018-02-01 07:12] LABS: PHOSPHORUS 3.2 mg/dL (2.5-4.9)
[2018-02-01 07:44] LABS: PREALBUMIN 7.4 mg/dL (20.0-40.0)
[2018-02-01 08:13] LABS: INR 1.2; PARTIAL THROMBOPLASTIN TIME 23.6 sec (23.4-31.0); PROTHROMBIN TIME 12.3 sec (9.4-11.6)
[2018-02-01 08:37] LABS: BG BASE EXCESS 8.8 mmol/L (-2.0-2.0); BG CARBOXYHEMOGLOBIN 1.2 % (0.5-1.5); BG DEOXYHEMOGLOBIN 8.5 % (0.0-5.0); BG FRACTION INSPIRED OXYGEN 50; BG HCO3 ACT 32.7 mmol/L (22.0-26.0); BG METHEMOGLOBIN 0.2 % (0.0-1.5); BG OXYGEN SATURATION 91.4 % (92.0-98.5); BG OXYHEMOGLOBIN 90.1 % (94.0-97.0); BG PCO2 42.3 mmHg (35.0-45.0); BG PH 7.506 (7.350-7.450); BG PO2 59.7 mmHg (75.0-100.0); BG PRESSURE SUPPORT 15; BG SAMPLE SITE RIGHT RADIAL; BG TIDAL VOLUME(mL) 550 mL; BG TOTAL HEMOGLOBIN 8.8 g/dL (12.0-18.0); BG VENT MODE VENT - SIMV; BG VENT RATE 10 set
[2018-02-01] MEDS: PANTOPRAZOLE SODIUM 40 MG/VIAL IV SCH (08:48)
[2018-02-01] MEDS: FUROSEMIDE 40MG/4ML VIAL IVP SCH (08:48)
[2018-02-01] MEDS ORDERED: POTASSIUM CHLORIDE INJ 40 MEQ in DEXT 5% WATER 250 ML IV NR (10:00)
[2018-02-01] MEDS ORDERED: MAGNESIUM 1 G PREMIX 100 ML IV NR (10:00)
[2018-02-01] MEDS: KCL 20MEQ/100ML PREMIX 100 ML IV SCH ×2 (10:20→12:26)
[2018-02-01] MEDS: DEXTROSE 5% WATER 1,000 ML IV SCH (16:34)
[2018-02-01] MEDS: VANCOMYCIN 1250MG in DEXTROSE 5% WATER 250ML IV SCH (22:52)
[2018-02-02] VITALS (48 sets, daily range): BP systolic 81–140; BP diastolic 45–98
[2018-02-02] MEDS: IPRATROPIUM/ALBUTEROL 0.5-3(2.5)MG/3ML NEB HHN SCH ×6 (00:33→20:30)
[2018-02-02] MEDS: DEXTROSE 5% WATER 1,000 ML IV SCH ×3 (00:53→21:10)
[2018-02-02] MEDS: MEROPENEM 1,000 MG in SODIUM CHLORIDE 0.9% 100 ML IV SCH ×3 (05:27→21:07)
[2018-02-02 05:49] LABS: BASOPHILS % 0.8 % (0.0-2.0); EOSINOPHILS % 2.3 % (0.0-5.0); HEMATOCRIT. 25.1 % (36.0-48.0); HEMOGLOBIN. 7.9 g/dL (12.0-16.0); LYMPHOCYTES % 12.6 % (20.0-50.0); MEAN CORPUSCULAR HEMOGLOBIN 25.5 pg (28.0-32.0); MEAN CORPUSCULAR VOLUME 81.3 fL (81.0-99.0); MEAN PLATELET VOLUME 9.9 fl (7.4-10.4); MONOCYTES % 8.7 % (2.0-8.0); NEUTROPHILS % 75.6 % (40.0-76.0); PLATELET 134 x1000/uL (130-400); RED BLOOD CELL COUNT 3.09 mill/uL (4.2-5.4); RED CELL DISTRIBUTION WIDTH 25.8 % (11.6-14.6)
[2018-02-02 06:20] LABS: CHLORIDE 107 mEq/L (98-107)
[2018-02-02 06:46] LABS: PHOSPHORUS 2.6 mg/dL (2.5-4.9)
[2018-02-02 07:11] LABS: BG BASE EXCESS 4.9 mmol/L (-2.0-2.0); BG CARBOXYHEMOGLOBIN 0.9 % (0.5-1.5); BG DEOXYHEMOGLOBIN 0.8 % (0.0-5.0); BG FRACTION INSPIRED OXYGEN 50; BG HCO3 ACT 28.4 mmol/L (22.0-26.0); BG METHEMOGLOBIN 0.4 % (0.0-1.5); BG OXYGEN SATURATION 99.2 % (92.0-98.5); BG OXYHEMOGLOBIN 97.9 % (94.0-97.0); BG PCO2 37.2 mmHg (35.0-45.0); BG PH 7.501 (7.350-7.450); BG PO2 153.3 mmHg (75.0-100.0); BG PRESSURE SUPPORT 12; BG SAMPLE SITE RIGHT BRACHIAL; BG TIDAL VOLUME(mL) 550 mL; BG TOTAL HEMOGLOBIN 8.1 g/dL (12.0-18.0); BG VENT MODE VENT - SIMV; BG VENT RATE 8 set
[2018-02-02] MEDS ORDERED: POTASSIUM CHLORIDE INJ 40 MEQ in DEXT 5% WATER 250 ML IV ONE (07:45)
[2018-02-02] MEDS: PANTOPRAZOLE SODIUM 40 MG/VIAL IV SCH (08:33)
[2018-02-02] MEDS: FUROSEMIDE 40MG/4ML VIAL IVP SCH (08:33)
[2018-02-02] MEDS: KCL 20MEQ/100ML PREMIX 100 ML IV SCH ×3 (08:35→13:12)
[2018-02-02] MEDS ORDERED: PIPERONYL/PYRETHRINS (RID)120 ML SHAMPOO TOP PRN (14:30)
[2018-02-02] MEDS ORDERED: BISACODYL 10MG SUPP PR NR (18:45)
[2018-02-02] MEDS: VANCOMYCIN 1250MG in DEXTROSE 5% WATER 250ML IV SCH (21:07)
[2018-02-03] VITALS (43 sets, daily range): BP systolic 93–133; BP diastolic 47–85
[2018-02-03] MEDS: IPRATROPIUM/ALBUTEROL 0.5-3(2.5)MG/3ML NEB HHN SCH ×6 (00:10→20:43)
[2018-02-03] MEDS: MEROPENEM 1,000 MG in SODIUM CHLORIDE 0.9% 100 ML IV SCH ×2 (06:05→13:12)
[2018-02-03 06:43] LABS: CHLORIDE 105 mEq/L (98-107); HEMATOCRIT 25.6 % (36.0-48.0); HEMOGLOBIN 8.1 g/dL (12.0-16.0); MEAN CORPUSCULAR HEMOGLOBIN 25.7 pg (28.0-32.0); MEAN CORPUSCULAR VOLUME 81.4 fL (81.0-99.0); PLATELET 130 x1000/uL (130-400); RED BLOOD CELL COUNT 3.15 mill/uL (4.2-5.4); RED CELL DISTRIBUTION WIDTH 25.8 % (11.6-14.6)
[2018-02-03] MEDS ORDERED: POTASSIUM CHLORIDE INJ 40 MEQ in DEXT 5% WATER 250 ML IV ONE (08:15)
[2018-02-03] MEDS: PANTOPRAZOLE SODIUM 40 MG/VIAL IV SCH (08:41)
[2018-02-03] MEDS: DEXTROSE 5% WATER 1,000 ML IV SCH ×2 (08:42→23:00)
[2018-02-03] MEDS ORDERED: SODIUM BICARBONATE 4% (2.4MEQ) 5ML VIAL IV ONE (09:51)
[2018-02-03] MEDS ORDERED: LIDOCAINE HCL/PF 1% 10 MG/ML 5ML VIAL ONE (09:51)
[2018-02-03] MEDS ORDERED: KCL 20MEQ/100ML PREMIX 100 ML IV NR ×2 (10:00→12:00)
[2018-02-03] MEDS: VANCOMYCIN 1250MG in DEXTROSE 5% WATER 250ML IV SCH (19:54)
[2018-02-04] VITALS (41 sets, daily range): BP systolic 94–127; BP diastolic 49–79
[2018-02-04] MEDS: IPRATROPIUM/ALBUTEROL 0.5-3(2.5)MG/3ML NEB HHN SCH ×6 (01:24→20:14)
[2018-02-04 05:39] LABS: BASOPHILS % 0.7 % (0.0-2.0); EOSINOPHILS % 3.1 % (0.0-5.0); HEMATOCRIT. 26.3 % (36.0-48.0); HEMOGLOBIN. 8.1 g/dL (12.0-16.0); LYMPHOCYTES % 16.1 % (20.0-50.0); MEAN CORPUSCULAR HEMOGLOBIN 25.5 pg (28.0-32.0); MEAN CORPUSCULAR VOLUME 82.5 fL (81.0-99.0); MEAN PLATELET VOLUME 10.3 fl (7.4-10.4); MONOCYTES % 8.2 % (2.0-8.0); NEUTROPHILS % 71.9 % (40.0-76.0); PLATELET 137 x1000/uL (130-400); RED BLOOD CELL COUNT 3.19 mill/uL (4.2-5.4); RED CELL DISTRIBUTION WIDTH 25.9 % (11.6-14.6)
[2018-02-04 05:42] LABS: CHLORIDE 104 mEq/L (98-107)
[2018-02-04 05:52] LABS: PHOSPHORUS 1.7 mg/dL (2.5-4.9)
[2018-02-04] MEDS ORDERED: POTASSIUM CHLORIDE INJ 40 MEQ in DEXT 5% WATER 250 ML IV ONE (06:00)
[2018-02-04 06:27] LABS: PREALBUMIN 7.4 mg/dL (20.0-40.0)
[2018-02-04] MEDS: KCL 20MEQ/100ML PREMIX 100 ML IV SCH ×2 (07:59→10:52)
[2018-02-04] MEDS ORDERED: MAGNESIUM 2 G PREMIX 50 ML IV NR (08:00)
[2018-02-04] MEDS: PANTOPRAZOLE SODIUM 40 MG/VIAL IV SCH (08:00)
[2018-02-04 09:06] LABS: BG BASE EXCESS 2.9 mmol/L (-2.0-2.0); BG CARBOXYHEMOGLOBIN 0.3 % (0.5-1.5); BG DEOXYHEMOGLOBIN 1.3 % (0.0-5.0); BG FRACTION INSPIRED OXYGEN 35; BG HCO3 ACT 26.6 mmol/L (22.0-26.0); BG METHEMOGLOBIN 0.3 % (0.0-1.5); BG OXYGEN SATURATION 98.7 % (92.0-98.5); BG OXYHEMOGLOBIN 98.1 % (94.0-97.0); BG PCO2 37.1 mmHg (35.0-45.0); BG PH 7.473 (7.350-7.450); BG PO2 138.6 mmHg (75.0-100.0); BG PRESSURE SUPPORT 10; BG SAMPLE SITE LEFT BRACHIAL; BG TIDAL VOLUME(mL) 550 mL; BG TOTAL HEMOGLOBIN 9.1 g/dL (12.0-18.0); BG VENT MODE VENT - SIMV; BG VENT RATE 6 set
[2018-02-04] MEDS ORDERED: FUROSEMIDE 40MG/4ML VIAL IVP SCH (10:15)
[2018-02-04] MEDS ORDERED: ALBUMIN HUMAN 25GM/100ML (25%) IV SCH (10:15)
[2018-02-04] MEDS ORDERED: POTASSIUM PHOS,M-BASIC-D-BASIC 20 MMOL in DEXT 5% WATER 243.3333 ML IV SCH (11:00)
[2018-02-04] MEDS: DIPHENHYDRAMINE 50MG/ML VIAL IV PRN (15:59)
[2018-02-04] MEDS: DEXTROSE 5% WATER 1,000 ML IV SCH (18:43)
[2018-02-04] MEDS: VANCOMYCIN 1250MG in DEXTROSE 5% WATER 250ML IV SCH (19:55)
[2018-02-05] VITALS (24 sets, daily range): BP systolic 90–136; BP diastolic 44–84
[2018-02-05] MEDS: IPRATROPIUM/ALBUTEROL 0.5-3(2.5)MG/3ML NEB HHN SCH ×7 (00:19→23:35)
[2018-02-05 04:46] LABS: BASOPHILS % 0.5 % (0.0-2.0); EOSINOPHILS % 2.8 % (0.0-5.0); HEMATOCRIT. 26.4 % (36.0-48.0); HEMOGLOBIN. 8.4 g/dL (12.0-16.0); LYMPHOCYTES % 16.8 % (20.0-50.0); MEAN CORPUSCULAR HEMOGLOBIN 25.8 pg (28.0-32.0); MEAN CORPUSCULAR VOLUME 81.3 fL (81.0-99.0); NEUTROPHILS % 71.9 % (40.0-76.0); PLATELET 142 x1000/uL (130-400); RED BLOOD CELL COUNT 3.25 mill/uL (4.2-5.4); RED CELL DISTRIBUTION WIDTH 25.7 % (11.6-14.6)
[2018-02-05] MEDS: PANTOPRAZOLE SODIUM 40 MG/VIAL IV SCH (09:13)
[2018-02-05] MEDS: SILVER SULFADIAZINE 1% CREAM 50GM TOP SCH (09:13)
[2018-02-05 11:19] LABS: CHLORIDE 99 mEq/L (98-107)
[2018-02-05 11:27] LABS: PHOSPHORUS 2.1 mg/dL (2.5-4.9)
[2018-02-05] MEDS: DEXTROSE 5% WATER 1,000 ML IV SCH ×2 (16:57→20:51)
[2018-02-05] MEDS: VANCOMYCIN 1250MG in DEXTROSE 5% WATER 250ML IV SCH (20:48)
[2018-02-06] VITALS (24 sets, daily range): BP systolic 95–133; BP diastolic 51–82
[2018-02-06] MEDS: IPRATROPIUM/ALBUTEROL 0.5-3(2.5)MG/3ML NEB HHN SCH ×2 (03:16→09:10)
[2018-02-06] MEDS: PANTOPRAZOLE SODIUM 40 MG/VIAL IV SCH (08:00)
[2018-02-06] MEDS: SILVER SULFADIAZINE 1% CREAM 50GM TOP SCH (08:00)
[2018-02-06 08:48] LABS: BG BASE EXCESS 2.5 mmol/L (-2.0-2.0); BG CARBOXYHEMOGLOBIN 0.4 % (0.5-1.5); BG DEOXYHEMOGLOBIN 2.3 % (0.0-5.0); BG FRACTION INSPIRED OXYGEN 28; BG HCO3 ACT 26.8 mmol/L (22.0-26.0); BG METHEMOGLOBIN 0.3 % (0.0-1.5); BG OXYGEN SATURATION 97.7 % (92.0-98.5); BG PCO2 40.2 mmHg (35.0-45.0); BG PH 7.442 (7.350-7.450); BG PO2 104.2 mmHg (75.0-100.0); BG PRESSURE SUPPORT 10; BG SAMPLE SITE RIGHT RADIAL; BG TIDAL VOLUME(mL) 550 mL; BG TOTAL HEMOGLOBIN 9.7 g/dL (12.0-18.0); BG VENT MODE VENT - SIMV; BG VENT RATE 6 set
[2018-02-06] MEDS: DEXT 5%/0.45% NACL 1000ML 1,000 ML IV SCH (12:44)
[2018-02-07] VITALS (24 sets, daily range): BP systolic 96–141; BP diastolic 50–79
[2018-02-07] MEDS: DEXT 5%/0.45% NACL 1000ML 1,000 ML IV SCH ×2 (02:18→14:32)
[2018-02-07 06:36] LABS: CHLORIDE 102 mEq/L (98-107)
[2018-02-07] MEDS: IPRATROPIUM/ALBUTEROL 0.5-3(2.5)MG/3ML NEB INH PRN ×3 (08:10→20:47)
[2018-02-07] MEDS: SILVER SULFADIAZINE 1% CREAM 50GM TOP SCH (10:00)
[2018-02-07] MEDS: PANTOPRAZOLE SODIUM 40 MG/VIAL IV SCH (10:00)
[2018-02-07 10:12] LABS: HEMATOCRIT. 26.5 % (36.0-48.0); HEMOGLOBIN. 8.4 g/dL (12.0-16.0); MEAN CORPUSCULAR HEMOGLOBIN 25.7 pg (28.0-32.0); MEAN CORPUSCULAR VOLUME 81.1 fL (81.0-99.0); MEAN PLATELET VOLUME 9.1 fl (7.4-10.4); PLATELET 151 x1000/uL (130-400); RED BLOOD CELL COUNT 3.27 mill/uL (4.2-5.4); RED CELL DISTRIBUTION WIDTH 26.6 % (11.6-14.6)
[2018-02-07 11:41] LABS: PLATELET ESTIMATE NORMAL
[2018-02-08] VITALS (24 sets, daily range): BP systolic 101–127; BP diastolic 52–71
[2018-02-08] MEDS: DEXT 5%/0.45% NACL 1000ML 1,000 ML IV SCH ×3 (06:00→20:04)
[2018-02-08 06:07] LABS: HEMATOCRIT 27.3 % (36.0-48.0); HEMOGLOBIN 8.8 g/dL (12.0-16.0); MEAN CORPUSCULAR HEMOGLOBIN 25.9 pg (28.0-32.0); PLATELET 167 x1000/uL (130-400); RED BLOOD CELL COUNT 3.37 mill/uL (4.2-5.4); RED CELL DISTRIBUTION WIDTH 26.2 % (11.6-14.6)
[2018-02-08 06:23] LABS: CHLORIDE 102 mEq/L (98-107)
[2018-02-08] MEDS ORDERED: POTASSIUM CHLORIDE INJ 40 MEQ in DEXT 5% WATER 250 ML IV ONE (08:15)
[2018-02-08] MEDS: IPRATROPIUM/ALBUTEROL 0.5-3(2.5)MG/3ML NEB INH PRN (08:16)
[2018-02-08 08:53] LABS: BG BASE EXCESS 0.7 mmol/L (-2.0-2.0); BG CARBOXYHEMOGLOBIN 0.8 % (0.5-1.5); BG DEOXYHEMOGLOBIN 2.9 % (0.0-5.0); BG FRACTION INSPIRED OXYGEN 28; BG HCO3 ACT 24.6 mmol/L (22.0-26.0); BG METHEMOGLOBIN 0.2 % (0.0-1.5); BG OXYGEN SATURATION 97.1 % (92.0-98.5); BG OXYHEMOGLOBIN 96.1 % (94.0-97.0); BG PCO2 36.6 mmHg (35.0-45.0); BG PH 7.446 (7.350-7.450); BG PO2 92.7 mmHg (75.0-100.0); BG PRESSURE SUPPORT 10; BG SAMPLE SITE RIGHT RADIAL; BG TIDAL VOLUME(mL) 550 mL; BG TOTAL HEMOGLOBIN 9.9 g/dL (12.0-18.0); BG VENT MODE VENT - A/C; BG VENT RATE 6 set
[2018-02-08] MEDS: PANTOPRAZOLE SODIUM 40 MG/VIAL IV SCH (09:38)
[2018-02-08] MEDS: SILVER SULFADIAZINE 1% CREAM 50GM TOP SCH (09:38)
[2018-02-08] MEDS: KCL 20MEQ/100ML PREMIX 100 ML IV SCH ×2 (09:39→11:54)
[2018-02-08] MEDS: IPRATROPIUM/ALBUTEROL 0.5-3(2.5)MG/3ML NEB HHN SCH ×2 (14:28→20:39)
[2018-02-09] VITALS (24 sets, daily range): BP systolic 97–139; BP diastolic 49–82
[2018-02-09] MEDS: IPRATROPIUM/ALBUTEROL 0.5-3(2.5)MG/3ML NEB HHN SCH ×4 (02:07→20:13)
[2018-02-09 06:31] LABS: BASOPHILS % 0.2 % (0.0-2.0); HEMATOCRIT. 27.4 % (36.0-48.0); HEMOGLOBIN. 8.7 g/dL (12.0-16.0); LYMPHOCYTES % 16.4 % (20.0-50.0); MEAN CORPUSCULAR VOLUME 82.1 fL (81.0-99.0); MEAN PLATELET VOLUME 8.7 fl (7.4-10.4); MONOCYTES % 7.8 % (2.0-8.0); NEUTROPHILS % 74.6 % (40.0-76.0); PLATELET 153 x1000/uL (130-400); RED BLOOD CELL COUNT 3.34 mill/uL (4.2-5.4)
[2018-02-09 06:43] LABS: CHLORIDE 101 mEq/L (98-107)
[2018-02-09] MEDS: PANTOPRAZOLE SODIUM 40 MG/VIAL IV SCH (09:12)
[2018-02-09] MEDS: MORPHINE SULFATE 4 MG/ML CPJ (NOT FOR IM USE) IV PRN (09:13)
[2018-02-09] MEDS: SILVER SULFADIAZINE 1% CREAM 50GM TOP SCH (09:40)
[2018-02-09] MEDS ORDERED: PIPERONYL/PYRETHRINS (RID)120 ML SHAMPOO TOP SCH (20:00)
[2018-02-10] VITALS (24 sets, daily range): BP systolic 99–136; BP diastolic 52–95
[2018-02-10] MEDS: IPRATROPIUM/ALBUTEROL 0.5-3(2.5)MG/3ML NEB HHN SCH ×4 (02:33→20:02)
[2018-02-10 05:42] LABS: BASOPHILS % 0.1 % (0.0-2.0); EOSINOPHILS % 1.7 % (0.0-5.0); HEMATOCRIT. 27.3 % (36.0-48.0); HEMOGLOBIN. 8.6 g/dL (12.0-16.0); LYMPHOCYTES % 15.8 % (20.0-50.0); MEAN CORPUSCULAR HEMOGLOBIN 25.9 pg (28.0-32.0); MEAN CORPUSCULAR VOLUME 82.4 fL (81.0-99.0); MONOCYTES % 7.3 % (2.0-8.0); NEUTROPHILS % 75.1 % (40.0-76.0); PLATELET 146 x1000/uL (130-400); RED BLOOD CELL COUNT 3.31 mill/uL (4.2-5.4); RED CELL DISTRIBUTION WIDTH 25.8 % (11.6-14.6)
[2018-02-10 06:10] LABS: CHLORIDE 101 mEq/L (98-107)
[2018-02-10] MEDS: PANTOPRAZOLE SODIUM 40 MG/VIAL IV SCH (09:55)
[2018-02-10] MEDS: SILVER SULFADIAZINE 1% CREAM 50GM TOP SCH (09:55)
[2018-02-11] VITALS (31 sets, daily range): BP systolic 79–152; BP diastolic 43–104
[2018-02-11] MEDS: IPRATROPIUM/ALBUTEROL 0.5-3(2.5)MG/3ML NEB HHN SCH ×3 (01:42→13:36)
[2018-02-11] MEDS: SILVER SULFADIAZINE 1% CREAM 50GM TOP SCH (09:00)
[2018-02-11 09:16] LABS: BG BASE EXCESS 0.5 mmol/L (-2.0-2.0); BG CARBOXYHEMOGLOBIN 0.2 % (0.5-1.5); BG DEOXYHEMOGLOBIN 3.5 % (0.0-5.0); BG FRACTION INSPIRED OXYGEN 28; BG HCO3 ACT 24.9 mmol/L (22.0-26.0); BG METHEMOGLOBIN 0.2 % (0.0-1.5); BG OXYGEN SATURATION 96.5 % (92.0-98.5); BG OXYHEMOGLOBIN 96.1 % (94.0-97.0); BG PCO2 38.8 mmHg (35.0-45.0); BG PH 7.425 (7.350-7.450); BG PO2 89.9 mmHg (75.0-100.0); BG PRESSURE SUPPORT 10; BG SAMPLE SITE RIGHT BRACHIAL; BG TIDAL VOLUME(mL) 550 mL; BG TOTAL HEMOGLOBIN 9.7 g/dL (12.0-18.0); BG VENT MODE VENT - SIMV; BG VENT RATE 6 set
[2018-02-11] MEDS ORDERED: PIPERONYL/PYRETHRINS (RID)120 ML SHAMPOO TOP ONE (10:00)
[2018-02-11] MEDS: MORPHINE SULFATE 4 MG/ML CPJ (NOT FOR IM USE) IV PRN (11:17)
[2018-02-11] MEDS: PANTOPRAZOLE SODIUM 40 MG/VIAL IV SCH (11:17)
[2018-02-11 12:51] LABS: CHLORIDE 105 mEq/L (98-107)
[2018-02-11 12:53] LABS: BASOPHILS % 0.2 % (0.0-2.0); EOSINOPHILS % 1.8 % (0.0-5.0); HEMATOCRIT. 27.9 % (36.0-48.0); LYMPHOCYTES % 20.8 % (20.0-50.0); MEAN CORPUSCULAR HEMOGLOBIN 26.4 pg (28.0-32.0); MEAN CORPUSCULAR VOLUME 82.2 fL (81.0-99.0); MEAN PLATELET VOLUME 8.4 fl (7.4-10.4); MONOCYTES % 9.3 % (2.0-8.0); NEUTROPHILS % 67.9 % (40.0-76.0); PLATELET 153 x1000/uL (130-400); RED BLOOD CELL COUNT 3.39 mill/uL (4.2-5.4)
[2018-02-11 13:13] LABS: INR 1.3; PARTIAL THROMBOPLASTIN TIME 30.5 sec (23.4-31.0); PROTHROMBIN TIME 13.1 sec (9.4-11.6)
[2018-02-11] MEDS ORDERED: MIDAZOLAM HCL 2 MG/2 ML VIAL ONE (20:00)
[2018-02-11] MEDS ORDERED: FENTANYL CITRATE/PF 50MCG/ML 2ML VIAL ONE (20:00)
[2018-02-12] VITALS (46 sets, daily range): BP systolic 106–151; BP diastolic 53–82
[2018-02-12] MEDS: IPRATROPIUM/ALBUTEROL 0.5-3(2.5)MG/3ML NEB HHN SCH ×4 (00:07→22:12)
[2018-02-12] MEDS: SILVER SULFADIAZINE 1% CREAM 50GM TOP SCH (08:17)
[2018-02-12 08:59] LABS: BG BASE EXCESS -0.2 mmol/L (-2.0-2.0); BG FRACTION INSPIRED OXYGEN 28; BG METHEMOGLOBIN 0.2 % (0.0-1.5); BG OXYHEMOGLOBIN 96.8 % (94.0-97.0); BG PCO2 32.2 mmHg (35.0-45.0); BG PH 7.472 (7.350-7.450); BG PO2 107.7 mmHg (75.0-100.0); BG SAMPLE SITE RIGHT RADIAL; BG TIDAL VOLUME(mL) 550 mL; BG TOTAL HEMOGLOBIN 9.7 g/dL (12.0-18.0); BG VENT MODE VENT - A/C; BG VENT RATE 12 set
[2018-02-12] MEDS: PANTOPRAZOLE SODIUM 40 MG/VIAL IV SCH (09:30)
[2018-02-13] VITALS (47 sets, daily range): BP systolic 110–155; BP diastolic 51–102
[2018-02-13] MEDS: IPRATROPIUM/ALBUTEROL 0.5-3(2.5)MG/3ML NEB HHN SCH ×4 (02:06→19:31)
[2018-02-13 08:59] LABS: BG BASE EXCESS -1.5 mmol/L (-2.0-2.0); BG CARBOXYHEMOGLOBIN 0.5 % (0.5-1.5); BG DEOXYHEMOGLOBIN 3.1 % (0.0-5.0); BG FRACTION INSPIRED OXYGEN 28; BG HCO3 ACT 22.2 mmol/L (22.0-26.0); BG METHEMOGLOBIN 0.2 % (0.0-1.5); BG OXYGEN SATURATION 96.9 % (92.0-98.5); BG OXYHEMOGLOBIN 96.2 % (94.0-97.0); BG PCO2 33.3 mmHg (35.0-45.0); BG PH 7.441 (7.350-7.450); BG PO2 94.6 mmHg (75.0-100.0); BG SAMPLE SITE RIGHT RADIAL; BG TIDAL VOLUME(mL) 550 mL; BG TOTAL HEMOGLOBIN 9.8 g/dL (12.0-18.0); BG VENT MODE VENT - A/C; BG VENT RATE 12 set
[2018-02-13] MEDS: PANTOPRAZOLE SODIUM 40 MG/VIAL IV SCH (09:28)
[2018-02-13] MEDS: SILVER SULFADIAZINE 1% CREAM 50GM TOP SCH (09:31)
[2018-02-13 13:05] LABS: BG CARBOXYHEMOGLOBIN 0.5 % (0.5-1.5); BG DEOXYHEMOGLOBIN 3.9 % (0.0-5.0); BG HCO3 ACT 21.6 mmol/L (22.0-26.0); BG METHEMOGLOBIN 0.3 % (0.0-1.5); BG OXYGEN SATURATION 96.1 % (92.0-98.5); BG OXYHEMOGLOBIN 95.3 % (94.0-97.0); BG PCO2 32.7 mmHg (35.0-45.0); BG PH 7.438 (7.350-7.450); BG PO2 89.1 mmHg (75.0-100.0); BG SAMPLE SITE RIGHT RADIAL; BG TIDAL VOLUME(mL) 550 mL; BG TOTAL HEMOGLOBIN 10.3 g/dL (12.0-18.0); BG VENT MODE VENT - SIMV; BG VENT RATE 8 set
[2018-02-14] VITALS (35 sets, daily range): BP systolic 102–145; BP diastolic 55–93
[2018-02-14] MEDS: IPRATROPIUM/ALBUTEROL 0.5-3(2.5)MG/3ML NEB HHN SCH ×3 (02:15→20:48)
[2018-02-14 07:53] LABS: BG BASE EXCESS 0.7 mmol/L (-2.0-2.0); BG CARBOXYHEMOGLOBIN 0.4 % (0.5-1.5); BG DEOXYHEMOGLOBIN 0.5 % (0.0-5.0); BG HCO3 ACT 24.6 mmol/L (22.0-26.0); BG METHEMOGLOBIN 0.3 % (0.0-1.5); BG OXYGEN SATURATION 99.5 % (92.0-98.5); BG OXYHEMOGLOBIN 98.8 % (94.0-97.0); BG PCO2 36.5 mmHg (35.0-45.0); BG PH 7.446 (7.350-7.450); BG PO2 252.3 mmHg (75.0-100.0); BG SAMPLE SITE RIGHT RADIAL; BG TIDAL VOLUME(mL) 550 mL; BG TOTAL HEMOGLOBIN 9.5 g/dL (12.0-18.0); BG VENT MODE VENT - A/C; BG VENT RATE 12 set
[2018-02-14] MEDS: PANTOPRAZOLE SODIUM 40 MG/VIAL IV SCH (08:17)
[2018-02-14] MEDS: BISACODYL 10MG SUPP PR PRN (08:18)
[2018-02-14] MEDS: MORPHINE SULFATE 4 MG/ML CPJ (NOT FOR IM USE) IV PRN (08:18)
[2018-02-14] MEDS: SILVER SULFADIAZINE 1% CREAM 50GM TOP SCH (08:21)
[2018-02-14 09:34] LABS: BG METHEMOGLOBIN 0.3 % (0.0-1.5); BG OXYHEMOGLOBIN 95.7 % (94.0-97.0); BG PCO2 39.7 mmHg (35.0-45.0); BG PO2 90.7 mmHg (75.0-100.0); BG SAMPLE SITE RIGHT RADIAL; BG TIDAL VOLUME(mL) 550 mL; BG TOTAL HEMOGLOBIN 10.1 g/dL (12.0-18.0); BG VENT MODE VENT - SIMV; BG VENT RATE 6 set
[2018-02-14 09:51] LABS: BASOPHILS % 0.5 % (0.0-2.0); HEMATOCRIT. 28.3 % (36.0-48.0); LYMPHOCYTES % 13.3 % (20.0-50.0); MEAN CORPUSCULAR HEMOGLOBIN 26.5 pg (28.0-32.0); MEAN CORPUSCULAR VOLUME 82.9 fL (81.0-99.0); MONOCYTES % 13.8 % (2.0-8.0); NEUTROPHILS % 71.4 % (40.0-76.0); PLATELET 168 x1000/uL (130-400); RED BLOOD CELL COUNT 3.41 mill/uL (4.2-5.4); RED CELL DISTRIBUTION WIDTH 25.1 % (11.6-14.6)
[2018-02-14 10:58] LABS: CHLORIDE 105 mEq/L (98-107)
[2018-02-14 11:16] LABS: PHOSPHORUS 3.7 mg/dL (2.5-4.9)
[2018-02-14] MEDS ORDERED: MORPHINE SULFATE 4 MG/ML CPJ (NOT FOR IM USE) IV PRN (12:30)
[2018-02-14] MEDS: DOCUSATE SODIUM SUGAR FREE 100MG/10ML UDC NG SCH (16:15)
[2018-02-14] MEDS: FUROSEMIDE 40MG/4ML VIAL IVP SCH (16:15)
[2018-02-14 16:46] LABS: BG BASE EXCESS -0.4 mmol/L (-2.0-2.0); BG CARBOXYHEMOGLOBIN 0.3 % (0.5-1.5); BG DEOXYHEMOGLOBIN 2.4 % (0.0-5.0); BG FRACTION INSPIRED OXYGEN 50; BG HCO3 ACT 24.3 mmol/L (22.0-26.0); BG METHEMOGLOBIN 0.1 % (0.0-1.5); BG OXYGEN SATURATION 97.6 % (92.0-98.5); BG OXYHEMOGLOBIN 97.2 % (94.0-97.0); BG PCO2 40.3 mmHg (35.0-45.0); BG PH 7.399 (7.350-7.450); BG PO2 107.4 mmHg (75.0-100.0); BG PRESSURE SUPPORT 12; BG SAMPLE SITE LEFT RADIAL; BG TIDAL VOLUME(mL) 550 mL; BG VENT MODE VENT - SIMV; BG VENT RATE 8 set
[2018-02-15] VITALS (28 sets, daily range): BP systolic 104–134; BP diastolic 54–90
[2018-02-15] MEDS: IPRATROPIUM/ALBUTEROL 0.5-3(2.5)MG/3ML NEB HHN SCH ×4 (02:16→20:02)
[2018-02-15 05:55] LABS: CHLORIDE 104 mEq/L (98-107)
[2018-02-15] MEDS: ACETAMINOPHEN 650MG/20.3ML UDC PO PRN (08:22)
[2018-02-15] MEDS: FUROSEMIDE 40MG/4ML VIAL IVP SCH (08:24)
[2018-02-15] MEDS: DOCUSATE SODIUM SUGAR FREE 100MG/10ML UDC NG SCH ×2 (08:24→16:46)
[2018-02-15] MEDS: PANTOPRAZOLE SODIUM 40 MG/VIAL IV SCH (08:24)
[2018-02-15] MEDS: SILVER SULFADIAZINE 1% CREAM 50GM TOP SCH (08:26)
[2018-02-16] VITALS (8 sets, daily range): BP systolic 101–133; BP diastolic 49–76
[2018-02-16] MEDS: IPRATROPIUM/ALBUTEROL 0.5-3(2.5)MG/3ML NEB HHN SCH ×5 (01:53→20:05)
[2018-02-16] MEDS: PANTOPRAZOLE SODIUM 40 MG/VIAL IV SCH (09:31)
[2018-02-16] MEDS: FUROSEMIDE 40MG/4ML VIAL IVP SCH (09:31)
[2018-02-16] MEDS: SILVER SULFADIAZINE 1% CREAM 50GM TOP SCH (09:31)
[2018-02-16] MEDS: DOCUSATE SODIUM SUGAR FREE 100MG/10ML UDC NG SCH ×2 (09:31→17:35)
[2018-02-16 17:28] LABS: BASOPHILS % 0.4 % (0.0-2.0); EOSINOPHILS % 1.4 % (0.0-5.0); HEMATOCRIT. 27.2 % (36.0-48.0); HEMOGLOBIN. 8.7 g/dL (12.0-16.0); LYMPHOCYTES % 19.1 % (20.0-50.0); MEAN CORPUSCULAR HEMOGLOBIN 26.9 pg (28.0-32.0); MEAN PLATELET VOLUME 8.5 fl (7.4-10.4); NEUTROPHILS % 69.1 % (40.0-76.0); PLATELET 169 x1000/uL (130-400); RED BLOOD CELL COUNT 3.24 mill/uL (4.2-5.4); RED CELL DISTRIBUTION WIDTH 25.6 % (11.6-14.6)
[2018-02-16 17:52] LABS: PLATELET ESTIMATE NORMAL
[2018-02-16 17:54] LABS: CHLORIDE 105 mEq/L (98-107)
[2018-02-16] MEDS ORDERED: CEFAZOLIN 1000MG PREMIX 50 ML IV PRN (18:01)
[2018-02-17] VITALS (12 sets, daily range): BP systolic 112–151; BP diastolic 63–90
[2018-02-17] MEDS: IPRATROPIUM/ALBUTEROL 0.5-3(2.5)MG/3ML NEB HHN SCH ×4 (02:19→20:45)
[2018-02-17 06:41] LABS: BASOPHILS % 0.3 % (0.0-2.0); EOSINOPHILS % 2.5 % (0.0-5.0); HEMATOCRIT. 27.4 % (36.0-48.0); HEMOGLOBIN. 8.7 g/dL (12.0-16.0); LYMPHOCYTES % 19.7 % (20.0-50.0); MEAN CORPUSCULAR VOLUME 84.5 fL (81.0-99.0); MEAN PLATELET VOLUME 8.7 fl (7.4-10.4); MONOCYTES % 10.1 % (2.0-8.0); NEUTROPHILS % 67.4 % (40.0-76.0); PLATELET 181 x1000/uL (130-400); RED BLOOD CELL COUNT 3.24 mill/uL (4.2-5.4); RED CELL DISTRIBUTION WIDTH 25.1 % (11.6-14.6)
[2018-02-17 06:58] LABS: CHLORIDE 105 mEq/L (98-107)
[2018-02-17] MEDS: DOCUSATE SODIUM SUGAR FREE 100MG/10ML UDC NG SCH ×2 (09:00→17:19)
[2018-02-17] MEDS: FUROSEMIDE 40MG/4ML VIAL IVP SCH (09:08)
[2018-02-17] MEDS: SILVER SULFADIAZINE 1% CREAM 50GM TOP SCH (09:09)
[2018-02-17 10:05] LABS: INR 1.3; PARTIAL THROMBOPLASTIN TIME 29.1 sec (23.4-31.0); PROTHROMBIN TIME 13.1 sec (9.4-11.6)
[2018-02-17] MEDS ORDERED: MIDAZOLAM HCL 5 MG/5 ML VIAL ONE (11:13)
[2018-02-17] MEDS ORDERED: FENTANYL CITRATE/PF 50MCG/ML 2ML VIAL ONE (11:13)
[2018-02-17] MEDS ORDERED: MIDAZOLAM HCL 2 MG/2 ML VIAL IV PRN (11:21)
[2018-02-17] MEDS ORDERED: OMEPRAZOLE 20MG CAPSULE EXTENDED RELEASE PO NR (12:00)
[2018-02-17] MEDS ORDERED: STERILE WATER FOR INJECTION 10ML VIAL ONE (15:28)
[2018-02-18] VITALS (12 sets, daily range): BP systolic 96–139; BP diastolic 46–79
[2018-02-18] MEDS: IPRATROPIUM/ALBUTEROL 0.5-3(2.5)MG/3ML NEB HHN SCH ×3 (03:53→20:34)
[2018-02-18] MEDS: OMEPRAZOLE 20MG CAPSULE EXTENDED RELEASE PO SCH (06:21)
[2018-02-18] MEDS: IPRATROPIUM/ALBUTEROL 0.5-3(2.5)MG/3ML NEB INH PRN (08:20)
[2018-02-18] MEDS: FUROSEMIDE 40MG/4ML VIAL IVP SCH (09:04)
[2018-02-18] MEDS: SILVER SULFADIAZINE 1% CREAM 50GM TOP SCH (09:05)
[2018-02-18] MEDS: DOCUSATE SODIUM SUGAR FREE 100MG/10ML UDC NG SCH ×2 (09:05→17:29)
[2018-02-18] MEDS ORDERED: LIDOCAINE HCL 1% 20ML VIAL (Pyxis) INJ ONE (12:29)
[2018-02-18] MEDS ORDERED: SODIUM BICARBONATE 4% (2.4MEQ) 5ML VIAL IV ONE (12:29)
[2018-02-19] VITALS (12 sets, daily range): BP systolic 113–163; BP diastolic 52–83
[2018-02-19] MEDS: IPRATROPIUM/ALBUTEROL 0.5-3(2.5)MG/3ML NEB HHN SCH ×5 (02:00→21:46)
[2018-02-19 07:24] LABS: BASOPHILS % 0.1 % (0.0-2.0); EOSINOPHILS % 0.3 % (0.0-5.0); HEMATOCRIT. 28.7 % (36.0-48.0); HEMOGLOBIN. 9.2 g/dL (12.0-16.0); LYMPHOCYTES % 12.9 % (20.0-50.0); MEAN CORPUSCULAR HEMOGLOBIN 26.9 pg (28.0-32.0); MEAN CORPUSCULAR VOLUME 84.1 fL (81.0-99.0); MEAN PLATELET VOLUME 8.6 fl (7.4-10.4); MONOCYTES % 8.8 % (2.0-8.0); NEUTROPHILS % 77.9 % (40.0-76.0); PLATELET 197 x1000/uL (130-400); RED BLOOD CELL COUNT 3.41 mill/uL (4.2-5.4); RED CELL DISTRIBUTION WIDTH 24.9 % (11.6-14.6)
[2018-02-19 07:36] LABS: CHLORIDE 105 mEq/L (98-107)
[2018-02-19] MEDS: FUROSEMIDE 40MG/4ML VIAL IVP SCH (08:41)
[2018-02-19] MEDS: OMEPRAZOLE 20MG CAPSULE EXTENDED RELEASE PO SCH (08:41)
[2018-02-19] MEDS: DOCUSATE SODIUM SUGAR FREE 100MG/10ML UDC NG SCH ×2 (08:42→17:06)
[2018-02-19] MEDS: SILVER SULFADIAZINE 1% CREAM 50GM TOP SCH (08:42)
[2018-02-19] MEDS: IPRATROPIUM/ALBUTEROL 0.5-3(2.5)MG/3ML NEB INH PRN (11:57)
[2018-02-19] MEDS: CEFOXITIN SODIUM 2 G in DEXT 5% WATER 100 ML IV SCH ×2 (12:18→20:17)
[2018-02-20] VITALS (12 sets, daily range): BP systolic 109–142; BP diastolic 56–86
[2018-02-20] MEDS: IPRATROPIUM/ALBUTEROL 0.5-3(2.5)MG/3ML NEB HHN SCH ×4 (03:08→20:46)
[2018-02-20] MEDS: CEFOXITIN SODIUM 2 G in DEXT 5% WATER 100 ML IV SCH ×3 (03:16→20:39)
[2018-02-20] MEDS: OMEPRAZOLE 20MG CAPSULE EXTENDED RELEASE PO SCH (06:38)
[2018-02-20 07:19] LABS: BASOPHILS % 0.1 % (0.0-2.0); EOSINOPHILS % 1.1 % (0.0-5.0); HEMATOCRIT. 27.5 % (36.0-48.0); HEMOGLOBIN. 8.8 g/dL (12.0-16.0); LYMPHOCYTES % 10.4 % (20.0-50.0); MEAN CORPUSCULAR HEMOGLOBIN 26.8 pg (28.0-32.0); MEAN CORPUSCULAR VOLUME 84.5 fL (81.0-99.0); MEAN PLATELET VOLUME 8.2 fl (7.4-10.4); NEUTROPHILS % 80.4 % (40.0-76.0); PLATELET 185 x1000/uL (130-400); RED BLOOD CELL COUNT 3.26 mill/uL (4.2-5.4); RED CELL DISTRIBUTION WIDTH 24.9 % (11.6-14.6)
[2018-02-20 07:41] LABS: CHLORIDE 104 mEq/L (98-107)
[2018-02-20] MEDS: DOCUSATE SODIUM SUGAR FREE 100MG/10ML UDC NG SCH ×2 (08:07→16:37)
[2018-02-20] MEDS: FUROSEMIDE 40MG/4ML VIAL IVP SCH (08:07)
[2018-02-20] MEDS: SILVER SULFADIAZINE 1% CREAM 50GM TOP SCH (08:08)
[2018-02-20] MEDS: ACETAMINOPHEN 650MG/20.3ML UDC PO PRN (13:07)
[2018-02-21] VITALS (12 sets, daily range): BP systolic 113–139; BP diastolic 61–75
[2018-02-21] MEDS: IPRATROPIUM/ALBUTEROL 0.5-3(2.5)MG/3ML NEB HHN SCH ×4 (00:59→20:19)
[2018-02-21] MEDS: CEFOXITIN SODIUM 2 G in DEXT 5% WATER 100 ML IV SCH ×3 (03:39→20:04)
[2018-02-21] MEDS: OMEPRAZOLE 20MG CAPSULE EXTENDED RELEASE PO SCH (06:30)
[2018-02-21] MEDS: FUROSEMIDE 40MG/4ML VIAL IVP SCH (08:16)
[2018-02-21] MEDS: DOCUSATE SODIUM SUGAR FREE 100MG/10ML UDC NG SCH ×2 (08:17→17:44)
[2018-02-21] MEDS: SILVER SULFADIAZINE 1% CREAM 50GM TOP SCH (08:17)
[2018-02-21 11:32] LABS: AMMONIA 52 uMol/L (<32)
[2018-02-22] VITALS (12 sets, daily range): BP systolic 113–141; BP diastolic 56–76
[2018-02-22] MEDS: IPRATROPIUM/ALBUTEROL 0.5-3(2.5)MG/3ML NEB HHN SCH ×4 (02:51→21:07)
[2018-02-22] MEDS: CEFOXITIN SODIUM 2 G in DEXT 5% WATER 100 ML IV SCH ×3 (04:37→21:11)
[2018-02-22 06:02] LABS: CHLORIDE 102 mEq/L (98-107)
[2018-02-22 06:20] LABS: BASOPHILS % 0.3 % (0.0-2.0); EOSINOPHILS % 2.5 % (0.0-5.0); HEMATOCRIT. 26.7 % (36.0-48.0); HEMOGLOBIN. 8.6 g/dL (12.0-16.0); LYMPHOCYTES % 15.6 % (20.0-50.0); MEAN CORPUSCULAR HEMOGLOBIN 27.4 pg (28.0-32.0); MEAN CORPUSCULAR VOLUME 85.3 fL (81.0-99.0); MEAN PLATELET VOLUME 8.7 fl (7.4-10.4); MONOCYTES % 7.4 % (2.0-8.0); NEUTROPHILS % 74.2 % (40.0-76.0); PLATELET 201 x1000/uL (130-400); RED BLOOD CELL COUNT 3.13 mill/uL (4.2-5.4); RED CELL DISTRIBUTION WIDTH 24.4 % (11.6-14.6)
[2018-02-22] MEDS: LANSOPRAZOLE 30MG DR CAPSULE GT SCH (06:36)
[2018-02-22] MEDS: FUROSEMIDE 40MG/4ML VIAL IVP SCH (08:25)
[2018-02-22] MEDS: DOCUSATE SODIUM SUGAR FREE 100MG/10ML UDC NG SCH ×2 (08:25→17:28)
[2018-02-22] MEDS: SILVER SULFADIAZINE 1% CREAM 50GM TOP SCH (08:25)
[2018-02-23] VITALS (12 sets, daily range): BP systolic 111–154; BP diastolic 61–91
[2018-02-23] MEDS: IPRATROPIUM/ALBUTEROL 0.5-3(2.5)MG/3ML NEB HHN SCH ×4 (01:35→20:14)
[2018-02-23] MEDS: CEFOXITIN SODIUM 2 G in DEXT 5% WATER 100 ML IV SCH ×3 (04:50→21:07)
[2018-02-23] MEDS: LANSOPRAZOLE 30MG DR CAPSULE GT SCH (06:43)
[2018-02-23] MEDS: SILVER SULFADIAZINE 1% CREAM 50GM TOP SCH (08:55)
[2018-02-23] MEDS: FUROSEMIDE 40MG/4ML VIAL IVP SCH (08:55)
[2018-02-23] MEDS: DOCUSATE SODIUM SUGAR FREE 100MG/10ML UDC NG SCH (08:55)
[2018-02-23] MEDS ORDERED: DOCUSATE SODIUM SUGAR FREE 100MG/10ML UDC NG PRN (10:30)
[2018-02-24] VITALS (12 sets, daily range): BP systolic 111–154; BP diastolic 65–96
[2018-02-24] MEDS: IPRATROPIUM/ALBUTEROL 0.5-3(2.5)MG/3ML NEB HHN SCH ×4 (02:19→20:40)
[2018-02-24] MEDS: CEFOXITIN SODIUM 2 G in DEXT 5% WATER 100 ML IV SCH (05:09)
[2018-02-24 06:05] LABS: BASOPHILS % 0.8 % (0.0-2.0); EOSINOPHILS % 1.9 % (0.0-5.0); HEMATOCRIT. 28.1 % (36.0-48.0); LYMPHOCYTES % 18.3 % (20.0-50.0); MEAN CORPUSCULAR HEMOGLOBIN 27.3 pg (28.0-32.0); MEAN CORPUSCULAR VOLUME 84.8 fL (81.0-99.0); MONOCYTES % 10.2 % (2.0-8.0); NEUTROPHILS % 68.8 % (40.0-76.0); PLATELET 251 x1000/uL (130-400); RED BLOOD CELL COUNT 3.31 mill/uL (4.2-5.4); RED CELL DISTRIBUTION WIDTH 24.4 % (11.6-14.6)
[2018-02-24 06:37] LABS: CHLORIDE 101 mEq/L (98-107)
[2018-02-24] MEDS: LANSOPRAZOLE 30MG DR CAPSULE GT SCH (06:54)
[2018-02-24] MEDS: FUROSEMIDE 40MG/4ML VIAL IVP SCH (09:14)
[2018-02-24] MEDS: LACTULOSE 20G/30ML UDC GT SCH (09:14)
[2018-02-24] MEDS: SILVER SULFADIAZINE 1% CREAM 50GM TOP SCH (16:05)
[2018-02-25] VITALS (12 sets, daily range): BP systolic 109–131; BP diastolic 48–90
[2018-02-25] MEDS: IPRATROPIUM/ALBUTEROL 0.5-3(2.5)MG/3ML NEB HHN SCH ×4 (01:28→21:56)
[2018-02-25] MEDS: FUROSEMIDE 40MG/4ML VIAL IVP SCH (08:34)
[2018-02-25] MEDS: LANSOPRAZOLE 30MG DR CAPSULE GT SCH (08:34)
[2018-02-25] MEDS: LACTULOSE 20G/30ML UDC GT SCH (08:34)
[2018-02-25] MEDS: SILVER SULFADIAZINE 1% CREAM 50GM TOP SCH (09:00)
[2018-02-26] VITALS (12 sets, daily range): BP systolic 113–141; BP diastolic 59–85
[2018-02-26] MEDS: IPRATROPIUM/ALBUTEROL 0.5-3(2.5)MG/3ML NEB HHN SCH ×4 (02:49→20:26)
[2018-02-26] MEDS: LANSOPRAZOLE 30MG DR CAPSULE GT SCH (06:32)
[2018-02-26] MEDS: FUROSEMIDE 40MG/4ML VIAL IVP SCH (08:34)
[2018-02-26] MEDS: LACTULOSE 20G/30ML UDC GT SCH (08:34)
[2018-02-26] MEDS: SILVER SULFADIAZINE 1% CREAM 50GM TOP SCH (08:34)
[2018-02-27] VITALS (12 sets, daily range): BP systolic 118–164; BP diastolic 59–98
[2018-02-27] MEDS: IPRATROPIUM/ALBUTEROL 0.5-3(2.5)MG/3ML NEB HHN SCH ×4 (01:14→20:34)
[2018-02-27 06:01] LABS: AMMONIA 57 uMol/L (<32)
[2018-02-27] MEDS: LANSOPRAZOLE 30MG DR CAPSULE GT SCH (06:36)
[2018-02-27] MEDS: SILVER SULFADIAZINE 1% CREAM 50GM TOP SCH (07:14)
[2018-02-27] MEDS: LACTULOSE 20G/30ML UDC GT SCH (09:24)
[2018-02-27] MEDS: FUROSEMIDE 40MG/4ML VIAL IVP SCH (09:24)
[2018-02-28] VITALS (18 sets, daily range): BP systolic 109–163; BP diastolic 61–120
[2018-02-28] MEDS: IPRATROPIUM/ALBUTEROL 0.5-3(2.5)MG/3ML NEB HHN SCH ×4 (02:06→20:19)
[2018-02-28] MEDS: FUROSEMIDE 40MG/4ML VIAL IVP SCH (09:00)
[2018-02-28] MEDS: SILVER SULFADIAZINE 1% CREAM 50GM TOP SCH (09:00)
[2018-02-28] MEDS: LACTULOSE 20G/30ML UDC GT SCH ×2 (09:00→09:40)
[2018-02-28] MEDS: LANSOPRAZOLE 30MG DR CAPSULE GT SCH (15:00)
[2018-02-28] MEDS: BISACODYL 10MG SUPP PR PRN (15:00)
[2018-03-01] VITALS (12 sets, daily range): BP systolic 108–142; BP diastolic 55–89
[2018-03-01] MEDS: IPRATROPIUM/ALBUTEROL 0.5-3(2.5)MG/3ML NEB HHN SCH ×4 (02:36→21:00)
[2018-03-01] MEDS: LANSOPRAZOLE 30MG DR CAPSULE GT SCH (10:05)
[2018-03-01] MEDS: FUROSEMIDE 40MG/4ML VIAL IVP SCH (10:05)
[2018-03-01] MEDS: LACTULOSE 20G/30ML UDC GT SCH (10:06)
[2018-03-01] MEDS: SILVER SULFADIAZINE 1% CREAM 50GM TOP SCH (10:10)
[2018-03-02] VITALS (13 sets, daily range): BP systolic 98–133; BP diastolic 52–74
[2018-03-02] MEDS: IPRATROPIUM/ALBUTEROL 0.5-3(2.5)MG/3ML NEB HHN SCH ×5 (02:40→19:59)
[2018-03-02] MEDS: LANSOPRAZOLE 30MG DR CAPSULE GT SCH (08:01)
[2018-03-02] MEDS: FUROSEMIDE 40MG/4ML VIAL IVP SCH (08:01)
[2018-03-02] MEDS: LACTULOSE 20G/30ML UDC GT SCH (08:01)
[2018-03-03] VITALS (15 sets, daily range): BP systolic 31–158; BP diastolic 64–85
[2018-03-03] MEDS: IPRATROPIUM/ALBUTEROL 0.5-3(2.5)MG/3ML NEB HHN SCH ×4 (02:05→20:46)
[2018-03-03] MEDS: LANSOPRAZOLE 30MG DR CAPSULE GT SCH (08:11)
[2018-03-03] MEDS: FUROSEMIDE 40MG/4ML VIAL IVP SCH (08:11)
[2018-03-03] MEDS: LACTULOSE 20G/30ML UDC GT SCH (08:11)
[2018-03-03] MEDS: SILVER SULFADIAZINE 1% CREAM 50GM TOP SCH (08:12)
[2018-03-04] VITALS (12 sets, daily range): BP systolic 123–155; BP diastolic 68–93
[2018-03-04] MEDS: IPRATROPIUM/ALBUTEROL 0.5-3(2.5)MG/3ML NEB HHN SCH ×3 (02:52→15:15)
[2018-03-04 07:36] LABS: BASOPHILS % 0.4 % (0.0-2.0); EOSINOPHILS % 1.9 % (0.0-5.0); HEMATOCRIT. 27.1 % (36.0-48.0); HEMOGLOBIN. 8.9 g/dL (12.0-16.0); LYMPHOCYTES % 17.9 % (20.0-50.0); MEAN CORPUSCULAR HEMOGLOBIN 28.2 pg (28.0-32.0); MEAN CORPUSCULAR VOLUME 85.5 fL (81.0-99.0); MEAN PLATELET VOLUME 9.5 fl (7.4-10.4); MONOCYTES % 7.5 % (2.0-8.0); NEUTROPHILS % 72.3 % (40.0-76.0); PLATELET 265 x1000/uL (130-400); RED BLOOD CELL COUNT 3.17 mill/uL (4.2-5.4)
[2018-03-04 07:37] LABS: CHLORIDE 101 mEq/L (98-107)
[2018-03-04] MEDS: LANSOPRAZOLE 30MG DR CAPSULE GT SCH (07:59)
[2018-03-04] MEDS: LACTULOSE 20G/30ML UDC GT SCH (09:35)
[2018-03-04] MEDS: FUROSEMIDE 40MG/4ML VIAL IVP SCH (09:35)
[2018-03-04] MEDS: SILVER SULFADIAZINE 1% CREAM 50GM TOP SCH (09:35)
[2018-03-04] MEDS: ACETAMINOPHEN 650MG/20.3ML UDC PO PRN (17:15)
[2018-03-04] MEDS: IPRATROPIUM/ALBUTEROL 0.5-3(2.5)MG/3ML NEB INH PRN (20:20)
[2018-03-05] VITALS (18 sets, daily range): BP systolic 97–159; BP diastolic 52–89
[2018-03-05] MEDS: IPRATROPIUM/ALBUTEROL 0.5-3(2.5)MG/3ML NEB HHN SCH ×3 (01:46→20:54)
[2018-03-05] MEDS: LACTULOSE 20G/30ML UDC GT SCH (09:04)
[2018-03-05] MEDS: SILVER SULFADIAZINE 1% CREAM 50GM TOP SCH (09:05)
[2018-03-05] MEDS: LANSOPRAZOLE 30MG DR CAPSULE GT SCH (09:05)
[2018-03-05] MEDS: FUROSEMIDE 40MG/4ML VIAL IVP SCH (09:05)
[2018-03-06] VITALS (13 sets, daily range): BP systolic 111–137; BP diastolic 54–78
[2018-03-06] MEDS: IPRATROPIUM/ALBUTEROL 0.5-3(2.5)MG/3ML NEB HHN SCH ×4 (02:00→20:41)
[2018-03-06] MEDS: LANSOPRAZOLE 30MG DR CAPSULE GT SCH (07:30)
[2018-03-06] MEDS: ACETAMINOPHEN 650MG/20.3ML UDC PO PRN (09:30)
[2018-03-06] MEDS: LACTULOSE 20G/30ML UDC GT SCH (09:30)
[2018-03-06] MEDS: FUROSEMIDE 40MG/4ML VIAL IVP SCH (09:31)
[2018-03-07] VITALS (13 sets, daily range): BP systolic 106–157; BP diastolic 61–88
[2018-03-07] MEDS: IPRATROPIUM/ALBUTEROL 0.5-3(2.5)MG/3ML NEB HHN SCH ×4 (04:02→19:58)
[2018-03-07] MEDS: LANSOPRAZOLE 30MG DR CAPSULE GT SCH (06:53)
[2018-03-07] MEDS: LACTULOSE 20G/30ML UDC GT SCH (09:02)
[2018-03-07] MEDS: FUROSEMIDE 40MG/4ML VIAL IVP SCH (09:02)
[2018-03-07] MEDS: SILVER SULFADIAZINE 1% CREAM 25GM TOP SCH (20:21)
[2018-03-08] VITALS (12 sets, daily range): BP systolic 119–156; BP diastolic 61–83
[2018-03-08] MEDS: IPRATROPIUM/ALBUTEROL 0.5-3(2.5)MG/3ML NEB HHN SCH ×3 (01:40→14:10)
[2018-03-08] MEDS: LANSOPRAZOLE 30MG DR CAPSULE GT SCH (06:43)
[2018-03-08] MEDS: FUROSEMIDE 40MG/4ML VIAL IVP SCH (08:45)
[2018-03-08] MEDS: LACTULOSE 20G/30ML UDC GT SCH (08:45)
[2018-03-08] MEDS: SILVER SULFADIAZINE 1% CREAM 25GM TOP SCH ×2 (09:00→21:49)
[2018-03-09] VITALS (18 sets, daily range): BP systolic 125–170; BP diastolic 68–102
[2018-03-09] MEDS: LANSOPRAZOLE 30MG DR CAPSULE GT SCH (06:43)
[2018-03-09] MEDS: SILVER SULFADIAZINE 1% CREAM 25GM TOP SCH ×2 (08:40→20:37)
[2018-03-09] MEDS: FUROSEMIDE 40MG/4ML VIAL IVP SCH (08:40)
[2018-03-09] MEDS: LACTULOSE 20G/30ML UDC GT SCH (08:40)
[2018-03-09] MEDS ORDERED: TERBUTALINE SULFATE 1MG/ML VIAL SUBCUT NR (17:00)
[2018-03-09] MEDS: IPRATROPIUM/ALBUTEROL 0.5-3(2.5)MG/3ML NEB HHN SCH (20:15)
[2018-03-10] VITALS (12 sets, daily range): BP systolic 114–154; BP diastolic 57–88
[2018-03-10] MEDS: IPRATROPIUM/ALBUTEROL 0.5-3(2.5)MG/3ML NEB HHN SCH ×6 (00:10→19:56)
[2018-03-10] MEDS: ACETYLCYSTEINE 100MG/ML 10% VIAL 4ML INH SCH ×3 (00:11→14:00)
[2018-03-10] MEDS: LANSOPRAZOLE 30MG DR CAPSULE GT SCH (06:47)
[2018-03-10] MEDS: FUROSEMIDE 40MG/4ML VIAL IVP SCH (08:51)
[2018-03-10] MEDS: LACTULOSE 20G/30ML UDC GT SCH (08:51)
[2018-03-10] MEDS: SILVER SULFADIAZINE 1% CREAM 25GM TOP SCH ×2 (08:52→23:06)
[2018-03-11] VITALS (11 sets, daily range): BP systolic 113–159; BP diastolic 56–98
[2018-03-11] MEDS: IPRATROPIUM/ALBUTEROL 0.5-3(2.5)MG/3ML NEB HHN SCH ×6 (00:14→20:25)
[2018-03-11] MEDS: ACETYLCYSTEINE 100MG/ML 10% VIAL 4ML INH SCH ×3 (00:14→15:49)
[2018-03-11] MEDS: LANSOPRAZOLE 30MG DR CAPSULE GT SCH (05:53)
[2018-03-11] MEDS: LACTULOSE 20G/30ML UDC GT SCH (08:28)
[2018-03-11] MEDS: FUROSEMIDE 40MG/4ML VIAL IVP SCH (08:28)
[2018-03-11] MEDS: SILVER SULFADIAZINE 1% CREAM 25GM TOP SCH ×2 (08:28→21:35)
[2018-03-12] VITALS (12 sets, daily range): BP systolic 102–158; BP diastolic 59–107
[2018-03-12] MEDS: IPRATROPIUM/ALBUTEROL 0.5-3(2.5)MG/3ML NEB HHN SCH ×5 (00:45→16:39)
[2018-03-12] MEDS: ACETYLCYSTEINE 100MG/ML 10% VIAL 4ML INH SCH ×3 (00:45→21:33)
[2018-03-12] MEDS: LACTULOSE 20G/30ML UDC GT SCH (08:42)
[2018-03-12] MEDS: LANSOPRAZOLE 30MG DR CAPSULE GT SCH (08:42)
[2018-03-12] MEDS: FUROSEMIDE 40MG/4ML VIAL IVP SCH (08:42)
[2018-03-12] MEDS: ACETAMINOPHEN 650MG/20.3ML UDC PO PRN (13:04)
[2018-03-12] MEDS ORDERED: PIPERONYL/PYRETHRINS (RID)120 ML SHAMPOO TOP NR (21:00)
[2018-03-13] VITALS (11 sets, daily range): BP systolic 110–139; BP diastolic 60–85
[2018-03-13] MEDS: ACETYLCYSTEINE 100MG/ML 10% VIAL 4ML INH SCH ×3 (00:40→16:32)
[2018-03-13] MEDS: IPRATROPIUM/ALBUTEROL 0.5-3(2.5)MG/3ML NEB HHN SCH ×6 (00:54→20:16)
[2018-03-13] MEDS: LANSOPRAZOLE 30MG DR CAPSULE GT SCH (09:32)
[2018-03-13] MEDS: LACTULOSE 20G/30ML UDC GT SCH (09:33)
[2018-03-13] MEDS: ACETAMINOPHEN 650MG/20.3ML UDC PO PRN (09:33)
[2018-03-13] MEDS: FUROSEMIDE 40MG/4ML VIAL IVP SCH (09:33)
[2018-03-14] VITALS (14 sets, daily range): BP systolic 110–144; BP diastolic 59–95
[2018-03-14] MEDS: ACETYLCYSTEINE 100MG/ML 10% VIAL 4ML INH SCH ×2 (00:41→15:32)
[2018-03-14] MEDS: IPRATROPIUM/ALBUTEROL 0.5-3(2.5)MG/3ML NEB HHN SCH ×5 (00:41→21:14)
[2018-03-14] MEDS: IPRATROPIUM/ALBUTEROL 0.5-3(2.5)MG/3ML NEB HHN PRN (04:30)
[2018-03-14] MEDS: FUROSEMIDE 40MG/4ML VIAL IVP SCH (09:23)
[2018-03-14] MEDS: LANSOPRAZOLE 30MG DR CAPSULE GT SCH (09:23)
[2018-03-14] MEDS: LACTULOSE 20G/30ML UDC GT SCH (09:24)
[2018-03-14] MEDS: ACETAMINOPHEN 650MG/20.3ML UDC PO PRN (18:24)
[2018-03-15] VITALS (15 sets, daily range): BP systolic 91–157; BP diastolic 51–98
[2018-03-15] MEDS: IPRATROPIUM/ALBUTEROL 0.5-3(2.5)MG/3ML NEB HHN SCH ×7 (01:30→23:56)
[2018-03-15] MEDS: ACETYLCYSTEINE 100MG/ML 10% VIAL 4ML INH SCH ×3 (01:30→23:55)
[2018-03-15] MEDS: LANSOPRAZOLE 30MG DR CAPSULE GT SCH (08:20)
[2018-03-15] MEDS: LACTULOSE 20G/30ML UDC GT SCH (08:20)
[2018-03-15] MEDS: LORAZEPAM 2MG/ML CPJ IV PRN (12:03)
[2018-03-15] MEDS: ACETAMINOPHEN 650MG/20.3ML UDC PO PRN (15:08)
[2018-03-15] MEDS ORDERED: ACETYLCYSTEINE 100MG/ML 10% VIAL 4ML INH SCH (16:30)
[2018-03-15] MEDS: IPRATROPIUM/ALBUTEROL 0.5-3(2.5)MG/3ML NEB HHN PRN (18:15)
[2018-03-16] VITALS (14 sets, daily range): BP systolic 88–141; BP diastolic 51–82
[2018-03-16] MEDS: IPRATROPIUM/ALBUTEROL 0.5-3(2.5)MG/3ML NEB HHN SCH ×5 (08:13→23:40)
[2018-03-16] MEDS: ACETYLCYSTEINE 100MG/ML 10% VIAL 4ML INH SCH (08:14)
[2018-03-16] MEDS: LANSOPRAZOLE 30MG DR CAPSULE GT SCH (08:26)
[2018-03-16] MEDS: LACTULOSE 20G/30ML UDC GT SCH (08:26)
[2018-03-16] MEDS: LORAZEPAM 2MG/ML CPJ IV PRN (08:47)
[2018-03-16] MEDS ORDERED: LORAZEPAM 2MG/ML CPJ IV PRN (13:45)
[2018-03-16] MEDS: ACETAMINOPHEN 650MG/20.3ML UDC PO PRN (16:26)
[2018-03-16 16:37] LABS: BG BASE EXCESS 4.6 mmol/L (-2.0-2.0); BG CARBOXYHEMOGLOBIN 0.3 % (0.5-1.5); BG FRACTION INSPIRED OXYGEN 40; BG HCO3 ACT 28.3 mmol/L (22.0-26.0); BG METHEMOGLOBIN 0.3 % (0.0-1.5); BG OXYHEMOGLOBIN 97.4 % (94.0-97.0); BG PCO2 38.3 mmHg (35.0-45.0); BG PH 7.486 (7.350-7.450); BG PO2 106.1 mmHg (75.0-100.0); BG SAMPLE SITE RIGHT RADIAL; BG TIDAL VOLUME(mL) 550 mL; BG TOTAL HEMOGLOBIN 9.4 g/dL (12.0-18.0); BG VENT MODE VENT - A/C; BG VENT RATE 12 set
[2018-03-16] MEDS ORDERED: DILTIAZEM HCL 5MG/ML 5ML VIAL IV NR (16:45)
[2018-03-16] MEDS ORDERED: SODIUM CHLORIDE 0.9% 500 ML IV ONE (18:00)
[2018-03-17] VITALS (12 sets, daily range): BP systolic 96–148; BP diastolic 54–89
[2018-03-17] MEDS: IPRATROPIUM/ALBUTEROL 0.5-3(2.5)MG/3ML NEB HHN SCH ×6 (00:43→20:44)
[2018-03-17] MEDS: LANSOPRAZOLE 30MG DR CAPSULE GT SCH (08:11)
[2018-03-17] MEDS: LACTULOSE 20G/30ML UDC GT SCH (08:11)
[2018-03-17] MEDS: ACETYLCYSTEINE 100MG/ML 10% VIAL 4ML INH SCH ×2 (08:19→21:37)
[2018-03-17 12:23] LABS: BASOPHILS % 0.5 % (0.0-2.0); EOSINOPHILS % 0.6 % (0.0-5.0); HEMATOCRIT. 28.1 % (36.0-48.0); LYMPHOCYTES % 11.8 % (20.0-50.0); MEAN CORPUSCULAR HEMOGLOBIN 28.1 pg (28.0-32.0); MEAN CORPUSCULAR VOLUME 87.6 fL (81.0-99.0); MEAN PLATELET VOLUME 9.6 fl (7.4-10.4); MONOCYTES % 7.8 % (2.0-8.0); NEUTROPHILS % 79.3 % (40.0-76.0); PLATELET 185 x1000/uL (130-400); RED CELL DISTRIBUTION WIDTH 22.1 % (11.6-14.6)
[2018-03-17 12:43] LABS: CHLORIDE 110 mEq/L (98-107)
[2018-03-17 14:02] LABS: BG BASE EXCESS 4.9 mmol/L (-2.0-2.0); BG CARBOXYHEMOGLOBIN 0.3 % (0.5-1.5); BG DEOXYHEMOGLOBIN 1.2 % (0.0-5.0); BG FRACTION INSPIRED OXYGEN 40; BG HCO3 ACT 28.3 mmol/L (22.0-26.0); BG METHEMOGLOBIN 0.3 % (0.0-1.5); BG OXYGEN SATURATION 98.8 % (92.0-98.5); BG OXYHEMOGLOBIN 98.2 % (94.0-97.0); BG PCO2 36.9 mmHg (35.0-45.0); BG PH 7.502 (7.350-7.450); BG PO2 133.8 mmHg (75.0-100.0); BG PRESSURE SUPPORT 14; BG SAMPLE SITE RIGHT RADIAL; BG TIDAL VOLUME(mL) 550 mL; BG TOTAL HEMOGLOBIN 10.2 g/dL (12.0-18.0); BG VENT MODE VENT - SIMV; BG VENT RATE 10 set
[2018-03-17] MEDS ORDERED: QUETIAPINE FUMARATE 25MG TABLET GT SCH (21:00)
[2018-03-17] MEDS: QUETIAPINE FUMARATE 25MG TABLET GT SCH (22:27)
[2018-03-18] VITALS (10 sets, daily range): BP systolic 113–149; BP diastolic 57–83
[2018-03-18] MEDS: IPRATROPIUM/ALBUTEROL 0.5-3(2.5)MG/3ML NEB HHN SCH ×4 (00:44→15:48)
[2018-03-18] MEDS: ACETYLCYSTEINE 100MG/ML 10% VIAL 4ML INH SCH ×2 (00:45→08:08)
[2018-03-18] MEDS: QUETIAPINE FUMARATE 25MG TABLET GT SCH (06:40)
[2018-03-18] MEDS: LACTULOSE 20G/30ML UDC GT SCH (08:49)
[2018-03-18] MEDS: LANSOPRAZOLE 30MG DR CAPSULE GT SCH (08:50)
[2018-03-18] MEDS ORDERED: POTASSIUM CHLORIDE 20MEQ/PACKET GT NR (09:15)
[2018-03-18] MEDS: ACETAMINOPHEN 650MG/20.3ML UDC PO PRN (12:41)
[2018-03-18 12:52] LABS: BG BASE EXCESS 3.7 mmol/L (-2.0-2.0); BG CARBOXYHEMOGLOBIN 0.2 % (0.5-1.5); BG DEOXYHEMOGLOBIN 1.8 % (0.0-5.0); BG FRACTION INSPIRED OXYGEN 40; BG HCO3 ACT 27.5 mmol/L (22.0-26.0); BG METHEMOGLOBIN 0.3 % (0.0-1.5); BG OXYGEN SATURATION 98.2 % (92.0-98.5); BG OXYHEMOGLOBIN 97.7 % (94.0-97.0); BG PCO2 38.4 mmHg (35.0-45.0); BG PH 7.473 (7.350-7.450); BG PO2 115.7 mmHg (75.0-100.0); BG PRESSURE SUPPORT 14; BG SAMPLE SITE RIGHT RADIAL; BG TIDAL VOLUME(mL) 550 mL; BG TOTAL HEMOGLOBIN 10.2 g/dL (12.0-18.0); BG VENT MODE VENT - SIMV; BG VENT RATE 10 set
[2018-03-18] MEDS ORDERED: LEVOFLOXACIN 500MG PREMIX 100 ML IV SCH (15:30)
== END 2018-03-18 19:25 | DRG 4 ==
LOC: ER 00:55 → CVICU 02:33 → EDBEDREQTM 02:37 → EDBEDREQ 02:37 → ENRESERV 07:34 → CANRESERV 07:34 → ENRESERV 12:47 → 5EST 02-15 22:45
PROVIDERS: ADMIT Internal Medicine; ATTEND Internal Medicine
PROC: 5A1955Z Respiratory Ventilation, Greater than 96 Consecutive Hours (ICD-10-PCS; principal; 2018-01-10)
PROC: 0BH17EZ Insertion of Endotracheal Airway into Trachea, Via Natural or Artificial Opening (ICD-10-PCS; 2018-01-10)
PROC: 02HV33Z Insertion of Infusion Device into Superior Vena Cava, Percutaneous Approach (ICD-10-PCS; 2018-01-10)
PROC: B548ZZA Ultrasonography of Superior Vena Cava, Guidance (ICD-10-PCS; 2018-01-10)
PROC: 30233N1 Transfusion of Nonautologous Red Blood Cells into Peripheral Vein, Percutaneous Approach (ICD-10-PCS; 2018-01-22)
PROC: 5A09457 Assistance with Respiratory Ventilation, 24-96 Consecutive Hours, Continuous Positive Airway Pressure (ICD-10-PCS; 2018-01-22)
PROC: 5A09357 Assistance with Respiratory Ventilation, Less than 24 Consecutive Hours, Continuous Positive Airway Pressure (ICD-10-PCS; 2018-01-24)
PROC: 5A09357 Assistance with Respiratory Ventilation, Less than 24 Consecutive Hours, Continuous Positive Airway Pressure (ICD-10-PCS; 2018-01-25)
PROC: 5A09357 Assistance with Respiratory Ventilation, Less than 24 Consecutive Hours, Continuous Positive Airway Pressure (ICD-10-PCS; 2018-01-27)
PROC: 5A09357 Assistance with Respiratory Ventilation, Less than 24 Consecutive Hours, Continuous Positive Airway Pressure (ICD-10-PCS; 2018-01-28)
PROC: 0BH17EZ Insertion of Endotracheal Airway into Trachea, Via Natural or Artificial Opening (ICD-10-PCS; 2018-01-29)
PROC: 5A1955Z Respiratory Ventilation, Greater than 96 Consecutive Hours (ICD-10-PCS; 2018-01-29)
PROC: 2Y41X5Z Packing of Nasal Region using Packing Material (ICD-10-PCS; 2018-01-29)
PROC: 5A09357 Assistance with Respiratory Ventilation, Less than 24 Consecutive Hours, Continuous Positive Airway Pressure (ICD-10-PCS; 2018-01-29)
PROC: 0W9G3ZZ Drainage of Peritoneal Cavity, Percutaneous Approach (ICD-10-PCS; 2018-02-03)
PROC: 0B113F4 Bypass Trachea to Cutaneous with Tracheostomy Device, Percutaneous Approach (ICD-10-PCS; 2018-02-11)
PROC: 0GBJ0ZZ Excision of Thyroid Gland Isthmus, Open Approach (ICD-10-PCS; 2018-02-11)
PROC: 0DH63UZ Insertion of Feeding Device into Stomach, Percutaneous Approach (ICD-10-PCS; 2018-02-17)
PROC: 0W9G3ZZ Drainage of Peritoneal Cavity, Percutaneous Approach (ICD-10-PCS; 2018-02-18)
PROC: 5A1945Z Respiratory Ventilation, 24-96 Consecutive Hours (ICD-10-PCS; 2018-03-16)
DX: A41.9 Sepsis, unspecified organism (principal); R65.21 Severe sepsis with septic shock; I21.4 Non-ST elevation (NSTEMI) myocardial infarction; J69.0 Pneumonitis due to inhalation of food and vomit; G93.41 Metabolic encephalopathy; I50.43 Acute on chronic combined systolic (congestive) and diastolic (congestive) heart failure; I47.2 Ventricular tachycardia; K65.9 Peritonitis, unspecified; E87.0 Hyperosmolality and hypernatremia; J96.00 Acute respiratory failure, unspecified whether with hypoxia or hypercapnia; R18.8 Other ascites; D68.9 Coagulation defect, unspecified; E87.2 Acidosis; E44.0 Moderate protein-calorie malnutrition; I27.20 Pulmonary hypertension, unspecified; E87.5 Hyperkalemia; I11.0 Hypertensive heart disease with heart failure; E66.01 Morbid (severe) obesity due to excess calories; L97.519 Non-pressure chronic ulcer of other part of right foot with unspecified severity; N39.0 Urinary tract infection, site not specified; R00.1 Bradycardia, unspecified; L97.529 Non-pressure chronic ulcer of other part of left foot with unspecified severity; B96.20 Unspecified Escherichia coli [E. coli] as the cause of diseases classified elsewhere; Z68.31 Body mass index [BMI] 31.0-31.9, adult; I48.91 Unspecified atrial fibrillation; I25.10 Atherosclerotic heart disease of native coronary artery without angina pectoris; E83.42 Hypomagnesemia; R79.89 Other specified abnormal findings of blood chemistry; T68.XXXA Hypothermia, initial encounter; E83.39 Other disorders of phosphorus metabolism; R04.0 Epistaxis; I73.9 Peripheral vascular disease, unspecified; R13.10 Dysphagia, unspecified; B85.0 Pediculosis due to Pediculus humanus capitis; K74.60 Unspecified cirrhosis of liver; J93.9 Pneumothorax, unspecified; K29.60 Other gastritis without bleeding; G40.909 Epilepsy, unspecified, not intractable, without status epilepticus; K80.20 Calculus of gallbladder without cholecystitis without obstruction; B95.62 Methicillin resistant Staphylococcus aureus infection as the cause of diseases classified elsewhere; D50.9 Iron deficiency anemia, unspecified; E87.6 Hypokalemia; I87.2 Venous insufficiency (chronic) (peripheral); Z86.73 Personal history of transient ischemic attack (TIA), and cerebral infarction without residual deficits; I25.2 Old myocardial infarction; Z79.01 Long term (current) use of anticoagulants; Z79.899 Other long term (current) drug therapy; Z83.3 Family history of diabetes mellitus; Z82.49 Family history of ischemic heart disease and other diseases of the circulatory system
CPT/HCPCS: 31500; 36415; 36569; 36600; 49083; 70450; 71045; 71275; 74018; 74176; 76700; 76705; 76937; 80048; 80053; 80061; 80076; 80162; 80202; 80305; 80307; 80329; 81003; 82040; 82140; 82375; 82550; 82553; 82805; 82962; 83036; 83605; 83615; 83690; 83735; 83880; 84100; 84132; 84134; 84145; 84439; 84443; 84478; 84484; 85014; 85018; 85025; 85027; 85049; 85379; 85384; 85610; 85730; 86850; 86900; 86920; 87040; 87070; 87077; 87086; 87186; 87205; 87804; 88108; 88312; 89050; 92523; 92610; 93005; 93306; 93922; 93923; 93970; 93971; 94002; 94003; 94640; 94660; 94667; 96365; 96367; 96375; 97110; 97112; 97161; 97163; 97164; 97167; 97530; 97535; 99291; A4216; A6261; C1725; C9113; G0482; J0330; J0690; J0692; J0694; J1200; J1265; J1650; J1940; J1953; J1956; J2060; J2185; J2250; J2270; J2370; J2543; J2704; J2920; J2930; J3010; J3370; J3430; J3475; J3480; J3490; J7030; J7040; J7050; J7060; J7070; J7512; J7608; J7611; J7620; P9016; P9041; P9047; Q9967; A4315